=== PATIENT | female | born 1990 | race Two or more races ===

== ENCOUNTER 2016-10-18 12:12 | Outpatient (CLI) | payer OTHER ==
--- NOTE | 2016-10-21 03:32 | Non Stress Test Report ---
Non Stress Test Datetime Report Generated by CPN: 10/21/2016 03:32 DEMOGRAPHIC EGA NST: 39.4 INDICATION Indication for Study: Diabetes Mellitus MONITORING Monitor Explained: Monitor Explained; Test Explained; Patient Verbalized Understanding Time on Monitor: 10/18/2016 12:27 Time off Monitor: 10/18/2016 12:57 NST Duration: 30 NST INTERVENTIONS NST Interventions: PO Hydration; Reposition Patient Physician Notified NST: J. Dang CNM BABY A: [id number] BABY A Movement : Present Contraction Frequency : irreg FHR Baseline : 140 Accelerations : 15X15 Decelerations : None Variability : Moderate 6-25bpm NST Review: Meets Criteria for Reactive NST NST Review and Verified By : Jody De Paz RNC NST Results: Reactive NST REPORT Report Trigger: Send Report
== END 2016-10-18 13:00 | disposition home or self-care (01) ==
LOC: LC 12:12
PROVIDERS: ATTEND Obstetrics & Gynecology
DX: O47.1 False labor at or after 37 completed weeks of gestation (principal); Z3A.39 39 weeks gestation of pregnancy
CPT/HCPCS: 59025

== ENCOUNTER 2016-10-21 03:34 | Outpatient (CLI) | payer OTHER ==
[2016-10-21 04:16] LABS: APPEARANCE,URINE CLEAR; BILIRUBIN,URINE NEGATIVE (NEGATIVE); GLUCOSE, URINE NEGATIVE (NEGATIVE); KETONES,URINE NEGATIVE (NEGATIVE); LEUKOCYTE ESTERASE,URINE NEGATIVE (NEGATIVE); NITRITE,URINE NEGATIVE (NEGATIVE); PROTEIN,URINE NEGATIVE (NEGATIVE); URINE SPECIFIC GRAVITY 1.005; UROBILINOGEN,URINE NEGATIVE mg/dL (<2.0)
[2016-10-21 04:43] LABS: URINE BARBITURATES SCREEN NEGATIVE
[2016-10-21 04:47] LABS: URINE METHADONE SCREEN NEGATIVE; URINE OPIATES LOW NEGATIVE; URINE PHENCYCLIDINE SCREEN NEGATIVE
[2016-10-21] MEDS ORDERED: HYDROXYZINE PAMOATE 50 MG CAPSULE ONE (06:26)
[2016-10-21] MEDS ORDERED: HYDROXYZINE PAMOATE 50 MG CAPSULE PO ONE (06:30)
--- NOTE | 2016-10-21 06:52 | Non Stress Test Report ---
Non Stress Test Datetime Report Generated by CPN: 10/21/2016 06:51 DEMOGRAPHIC EGA NST: 40.0 INDICATION Indication for Study: Ordered by Provider URINE RESULTS Urine Protein, NST: Negative Urine Ketones - NST: Negative Urine Glucose - NST: Negative Urine Blood - NST: Negative MONITORING Monitor Explained: Monitor Explained; Test Explained; Patient Verbalized Understanding Time on Monitor: 10/21/2016 03:51 Time off Monitor: 10/21/2016 06:35 NST Duration: 164 NST INTERVENTIONS NST Interventions: PO Hydration Physician Notified NST: Dr. Neilsen BABY A Movement : Present Contraction Frequency : 2-5 FHR Baseline : 135 Accelerations : 15X15 Decelerations : None Variability : Moderate 6-25bpm NST Review: Meets Criteria for Reactive NST NST Review and Verified By : Spring Medel RN NSMike Results: Reactive NST REPORT Report Trigger: Send Report
--- NOTE | 2016-10-21 10:45 | L&D Flow Sheet ---
LD Flowsheet Datetime Report Generated by CPN: 10/21/2016 10:45 Datetime: 10/21/2016 06:41 Patient Care Comments: Patient ambulating off of unit accompanied by spouse, denies any questions at this time. Patient in stable, ambulatory condition. Will follow up as scheduled at A. (Allie Ring, RN) Datetime: 10/21/2016 06:35 Patient Care Comments: Monitors removed and patient OOB to be discharged home. (Allie Ring, RN) Datetime: 10/21/2016 06:34 Monitor Mode: External; Palpation (Allie Ring, RN) Frequency (min): Irregular (Allie Ring, RN) Quality: Mild/Moderate (Allie Ring, RN) Duration (sec): 60-90 (Allie Ring, RN) Resting Tone (Palpate): Relaxed (Allie Ring, RN) Monitor Mode: External US (Allie Ring, RN) FHR Baseline Rate : 135 (Allie Ring, RN) Variability: Moderate 6-25 bpm (Allie Ring, RN) Accelerations: 15X15 (Allie Ring, RN) Decelerations: None (Allie Ring, RN) Datetime: 10/21/2016 06:33 NBP Sys/Devi/Mean (mmHg): 127 (QS system process) : 71 (QS system process) : 93 (QS system process) Pulse: 74 (QS system process) Respirations: 18 (Allie Ring, RN) Temperature (F): 96.9 (Allie Ring, RN) Temperature (C): 36.1 (QS system process) Temperature Route: Axillary (Allie Ring, RN) Pain Scale: 2 (Allie Ring, RN) Pain Presence: Intermittent (Allie Ring, RN) Pain Type: Contraction (Allie Ring, RN) Pain Location: Abdomen (Allie Ring, RN) Pain Goal: 1 (Allie Ring, RN) Pain Relief Measures: Pain Medication Given; Comfort Measures (Allie Ring, RN) LaborFlag: Antepartum (QS system process) Datetime: 10/21/2016 06:31 Teaching Comments: Pt and pt's spouse verbalized understanding of discharge materials and signs and symptoms to report to provider/return to hospital for. Pt states pain has decreased from 4 out of 5 to a 2 out of 5 and has no questions at this time. (Allie Ring, RN) Datetime: 10/21/2016 06:28 Medication Comments: vistaril 50 mg (Allie Ring, RN) Datetime: 10/21/2016 06:20 Provider Reviewed Strip: Yes (Allie Ulrich, RN) Notification Reason: Status Update (Allie Ulrich, RN) Communication Comments: Report to Dr. Montiel to include unchanged SVE. Orders received that patient may have 50 mg vistaril and may go home until contractions become more intense, suspected SROM, vaginal bleeding like a period and/or decreased movement. (Allie Ring, RN) Datetime: 10/21/2016 06:18 NBP Sys/Devi/Mean (mmHg): 134 (QS system process) : 73 (QS system process) : 98 (QS system process) Pulse: 80 (QS system process) Dilatation (cm): 2.0 (Allie Ring, RN) Effacement (%): 25 (Allie Ring, RN) Station: -2 (Allie Ring, RN) Exam by: B. Ring RN (Allie Ring, RN) Cervix, Consistency: Soft (Allie Ring, RN) LaborFlag: Antepartum (QS system process) Datetime: 10/21/2016 06:15 Patient Care Comments: Pt requesting SVE to be rechecked and states cannot walk anymore. (Allie Ring, RN) Datetime: 10/21/2016 05:15 Monitor Mode: External; Palpation (Allie Ring, RN) Frequency (min): 2-4 (Allie Ring, RN) Quality: Mild/Moderate (Allie Ring, RN) Duration (sec): 60-80 (Allie Ring, RN) Resting Tone (Palpate): Relaxed (Allie Ring, RN) Monitor Mode: External US (Allie Ring, RN) FHR Baseline Rate : 135 (Allie Ring, RN) Variability: Moderate 6-25 bpm (Allie Ring, RN) Accelerations: 15X15 (Allie Ring, RN) Decelerations: None (Allie Ring, RN) Patient Care Comments: Pt in agreement with walking. Monitors removed to have patient ambulate on unit. (Allie Ring, RN) Datetime: 10/21/2016 05:09 Communication Comments: Call placed to Dr. Montiel. Report to include relevant patient history, urinalysis results, vital signs, SVE and second SVE, toco data, FHR. Orders received to allow patient to walk for two hours and then perform SVE. Call provider for further orders. (Allie Ring, RN) Datetime: 10/21/2016 05:08 NBP Sys/Devi/Mean (mmHg): 137 (QS system process) : 75 (QS system process) : 101 (QS system process) Pulse: 74 (QS system process) LaborFlag: Antepartum (QS system process) Datetime: 10/21/2016 05:01 Dilatation (cm): 2.0 (Allie Ring, RN) Effacement (%): 25 (Allie Ring, RN) Station: -2 (Allie Ring, RN) Exam by: B. Ring RN (Allie Ring, RN) Cervix, Consistency: Soft (Allie Ring, RN) Datetime: 10/21/2016 05:00 Monitor Mode: External; Palpation (Allie Ring, RN) Frequency (min): 2-3 (Allie Ring, RN) Quality: Mild/Moderate (Allie Ring, RN) Duration (sec): 60-80 (Allie Ring, RN) Pattern: Normal: <= 5 Contractions in 10 Minutes (Allie Ring, RN) Resting Tone (Palpate): Relaxed (Allie Ring, RN) FHR Baseline Rate : 135 (Allie Ring, RN) Variability: Moderate 6-25 bpm (Allie Ring, RN) Accelerations: 10X10 (Allie Ring, RN) Decelerations: None (Allie Ring, RN) Datetime: 10/21/2016 04:46 I/O Interventions: Up to BR (Allie Ring, RN) Datetime: 10/21/2016 04:39 NBP Sys/Devi/Mean (mmHg): 139 (QS system process) : 76 (QS system process) : 102 (QS system process) Pulse: 82 (QS system process) LaborFlag: Antepartum (QS system process) Datetime: 10/21/2016 04:30 Monitor Mode: External; Palpation (Allie Ring, RN) Frequency (min): 2-2.5 (Allie Ring, RN) Quality: Mild/Moderate (Allie Ring, RN) Duration (sec): 60-90 (Allie Ring, RN) Resting Tone (Palpate): Relaxed (Allie Ring, RN) Monitor Mode: External US (Allie Ring, RN) FHR Baseline Rate : 135 (Allie Ring, RN) Variability: Moderate 6-25 bpm (Allie Ring, RN) Accelerations: 10X10 (Allie Ring, RN) Decelerations: None (Allie Ring, RN) Datetime: 10/21/2016 04:18 I/O Interventions: Popsicle (Allie Ring, RN) Datetime: 10/21/2016 04:07 NBP Sys/Devi/Mean (mmHg): 123 (QS system process) : 70 (QS system process) : 92 (QS system process) Pulse: 71 (QS system process) Respirations: 16 (Allie Ring, RN) Temperature (F): 98.0 (Allie Ring, RN) Temperature (C): 36.7 (QS system process) Temperature Route: Oral (Allie Ring, RN) LaborFlag: Antepartum (QS system process) Datetime: 10/21/2016 04:00 Monitor Mode: External; Palpation (Allie Ring, RN) Frequency (min): 2-2.5 (Allie Ring, RN) Quality: Mild/Moderate (Allie Ring, RN) Duration (sec): 60-70 (Allie Ring, RN) Resting Tone (Palpate): Relaxed (Allie Ring, RN) Monitor Mode: External US (Allie Ring, RN) FHR Baseline Rate : 145 (Allie Ring, RN) Variability: Moderate 6-25 bpm (Allie Ring, RN) Accelerations: None (Allie Ring, RN) Decelerations: None (Allie Ring, RN) I/O Interventions: Clear Liquids Given (Allie Ring, RN) Datetime: 10/21/2016 03:58 Frequency (min): per pt, contractions are 5-6 minutes apart and then sometimes are one right after another. (Allie Ring, RN) Pain Scale: 4 (Allie Ring, RN) Pain Presence: Intermittent (Allie Ring, RN) Pain Type: Contraction (Allie Ring, RN) Pain Location: Abdomen (Allie Ring, RN) Pain Goal: 1 (Allie Ring, RN) Pain Relief Measures: Comfort Measures (Allie Ring, RN) Pain Coping: Talking Through Contractions; Breathing Through Contractions (Allie Ring, RN) Membrane Status: Intact (Allie Ring, RN) Vaginal Bleeding: None (Allie Ring, RN) Dilatation (cm): 1-2 cm (Allie Ring, RN) Effacement: 0-30_ effaced (Allie Ring, RN) Station: minus 2 (Allie Ring, RN) Consistency: Medium (Allie Ring, RN) Position: Posterior (Allie Ring, RN) Total Barber's Score: 3 (QS system process) : 0-4 = Unfavorable cervix (QS system process) Level of Consciousness: Fully Conscious (Allie Ring, RN) DTR's/Clonus: DTRs 2+; No Clonus (Allie Ring, RN) Headache: Denies (Allie Ring, RN) Breath Sounds, Left: Clear and Equal (Allie Ulrich RN) Breath Sounds, Right: Clear and Equal (Allie Ulrich RN) Nausea/Vomiting: Denies (Allie Ulrich RN) RUQ Epigastric Pain: Denies (Allie Ulrich RN) Instructional Method: Verbal; Patient Instructed; Family/Support Person Instructed; Verbalized Understanding (Allie Ulrich RN) Plan of Care: Plan of Care Discussed (Allie Ulrich RN) Unit Routine: Leonard to Room; Call Segal; Bed; Handwashing; Monitoring; Safety/Fall Risk Prevention; Bathroom Privileges (Allie Ulrich RN) LaborFlag: Antepartum (QS system process) Datetime: 10/21/2016 03:55 Dilatation (cm): 1.0 (Allie Ulrich RN) Effacement (%): 25 (Allie Ulrich RN) Station: -2 (Allie Ulrich RN) Exam by: Zoila Ulrich RN (Allie Ulrich RN) Vaginal Bleeding: None (Allie Ulrich RN)
--- NOTE | 2016-10-21 10:45 | L&D Current Admission ---
Current Admit Datetime Report Generated by CPN: 10/21/2016 10:45 ADMISSION INFORMATION Chief Complaint: Contractions (10/21/2016 03:58:Allie Ring, RN)
--- NOTE | 2016-10-21 10:46 | L&D General Admission ---
General Admit Datetime Report Generated by CPN: 10/21/2016 10:45 INFORMATION Patient Age: 26 (09/27/2016 14:09:QS system process) EDC: 10/21/2016 00:00 (10/18/2016 12:14:Tanya Horan RN) : 2 (10/18/2016 12:14:Tanya Horan RN) Para: 0 (10/18/2016 12:14:Tanya Horan RN) Term: 0 (10/18/2016 12:14:NEAL Dalal) : 0 (10/18/2016 12:14:NEAL Dalal) Livin (10/18/2016 12:14:NEAL Dalal) Cesareans: 0 (10/18/2016 12:14:NEAL Dalal) VBACs: 0 (10/18/2016 12:14:NEAL Dalal) Ectopic: 0 (10/18/2016 12:14:NEAL Dalal) Multiple Births: 0 (10/18/2016 12:14:Jody De Paz [facility]) Baby, Number in Womb: 1 (10/18/2016 12:14:Jody De Paz [facility]) CARE Primary Blister Packing Machine Tender: Tedcas [facility] (10/18/2016 12:14:Tanya Horan RN) Month of 1st Visit: March (10/18/2016 12:14:Stephanie Saucedo RN) Adequate Care: Yes (10/18/2016 12:14:Stephanie Saucedo RN) Prepregnancy Weight (lb): 101 (10/18/2016 12:14:Stephanie Saucedo RN) Prepregnancy Weight (kg): 45.9 (10/18/2016 12:14:QS system process) Height (in): 62 (10/21/2016 04:33:QS system process) Height (in): 63 (10/18/2016 12:34:QS system process) ALLERGIES Medication Allergy: No (10/18/2016 12:14:Tanya Horan RN) Medication Allergies: No Known Allergies (10/21/2016) (10/21/2016 04:32:QS system process) Medication Allergies: No Known Allergies (10/18/2016) (10/18/2016 12:33:QS system process) Latex Allergy: No Latex Allergies (10/18/2016 12:14:Tanya Horan RN) Food Allergies: denies (10/18/2016 12:14:Allie Ulrich RN) Environmental Allergies: denies (10/18/2016 12:14:Allie Ulrich RN) COMMUNICATION Primary Language: Israeli (10/18/2016 12:14:Tanya Horan RN) Medical Tx Preferred Language: Israeli (10/18/2016 12:14:NEAL Dalal) Communication Barrier(s): None (10/18/2016 12:14:NEAL Dalal) DEMOGRAPHICS Address: [address] [place] [address] [place] [address] (09/27/2016 14:09:QS system process) Zipcode: [address] (09/27/2016 14:09:QS system process) Home (09/27/2016 14:09:QS system process) Work (10/18/2016 12:12:QS system process) Work (09/27/2016 14:09:QS system process) SSN: [id number] (09/27/2016 14:09:QS system process) Next of Kin Name: JOSHUA CASAREZ (09/27/2016 14:09:QS system process) Next of Kin (09/27/2016 14:09:QS system process) Next of Kin Relationship: SPO (09/27/2016 14:09:QS system process) Date of : 1990 (09/27/2016 14:09:QS system process) Marital Status: (09/27/2016 14:09:QS system process) Sex: Female (09/27/2016 14:09:QS system process) Race: Other (09/27/2016 14:09:QS system process) Ethnicity: Non- or (09/27/2016 14:09:QS system process) Jewish: None (09/27/2016 14:09:QS system process) DRUG AND ALCOHOL USE Alcohol: No (10/18/2016 12:14:Allie Ulrich RN) Cigarettes: Never Smoker. [id number] (10/18/2016 12:14:Allie Ulrich RN) Marijuana: No (10/18/2016 12:14:Allie Ulrich RN) Cocaine: No (10/18/2016 12:14:Allie Ulrich RN) Other Illicit Drugs: No (10/18/2016 12:14:Allie Ring, RN) VACCINE HISTORY Influenza Vaccine: Yes (10/18/2016 12:14:Allie Ulrich RN) Pneumococcal Vaccine: Uncertain (10/18/2016 12:14:Allie Ulrich RN) Tetanus Vaccine: Uncertain (10/18/2016 12:14:Allie Ulrich RN) Tdap Vaccine: Yes (10/18/2016 12:14:Allie Ulrich RN) Hepatitis B Vaccine: Yes (10/18/2016 12:14:Allie Ring RN) Feeding Preference: Breast (10/18/2016 12:14:Allie Ulrich RN) Benefit of Breast Feed Discussed: Yes (10/18/2016 12:14:Allie Ulrich RN) Circumcision: N/A (10/18/2016 12:14:Allie Ulrich RN) Classes Attended: No (10/18/2016 12:14:Allie Ulrich RN) Tubal Ligation: No (10/18/2016 12:14:Allie Ulrich RN) Tubal Authorization Signed: N/A (10/18/2016 12:14:Allie Ulrich RN) Consent: N/A (10/18/2016 12:14:Allie Ulrich RN) Pain Management Plans: Natural; Medications; Epidural (10/18/2016 12:14:Allie Ulrich RN) Plans for Labor and Delivery: None (10/18/2016 12:14:Allie Ulrich RN) Support Person: Joshua Casarez (10/18/2016 12:14:Allie Ulrich RN) Support Person Relationship: (10/18/2016 12:14:Allie Ulrich RN) Cultural/Spritual Practice: No (10/18/2016 12:14:Allie Ulrich RN) Spir/Cult Dietary Needs: No (10/18/2016 12:14:Allie Ulrich RN) LIVING SITUATION/DISCHARGE PLAN Living Arrangements: House (10/18/2016 12:14:Allie Ulrich RN) Adequate Access to:: Electric; Heat; Refrigeration; Plumbing/Running water; Phone; Transportation (10/18/2016 12:14:Allie Ulrich RN) WIC Program: No (10/18/2016 12:14:Allie Ulrich RN) Discharge Food Concession Manager Person: Joshua (10/18/2016 12:14:Allie Ulrich RN) Person to Help after Discharge: Joshua (10/18/2016 12:14:Allie Ulrich RN) Currently Using Commun Resources: No (10/18/2016 12:14:Allie Ulrich RN) Outside Agency/Practice Assistant: No (10/18/2016 12:14:Allie Ulrich RN) Car Seat for Discharge: Yes (10/18/2016 12:14:Allie Ulrich RN) Pt Contact w/ Post : N/A (10/18/2016 12:14:Allie Ulrich RN) LABS Blood Type: O Positive (10/18/2016 12:14:Tanya Horan RN) Antibody Screen: neg (10/18/2016 12:14:Tanya Horan RN) Group Beta Strep: neg (10/18/2016 12:14:Tanya Horan RN) Gonorrhea: Negative (10/18/2016 12:14:Tanya Horan RN) Chlamydia: Negative (10/18/2016 12:14:Stephanie Saucedo RN) RPR/VDRL: Nonreactive (10/18/2016 12:14:Tanya Horan RN) Hepatitis B: Negative (10/18/2016 12:14:Tanya Horan RN) Rubella: Non-Immune (10/18/2016 12:14:Stephanie Saucedo RN) OB/PREVIOUS HISTORY Previous Procedures: None (10/18/2016 12:14:Allie Ulrich RN) Current Procedures: Ultrasound (10/18/2016 12:14:Allie Ulrich RN) History of Previous : No (10/18/2016 12:14:Allie Ulrich RN) History of Gestational Diabetes: Yes (10/18/2016 12:14:Allie lUrich RN) History of PIH: No (10/18/2016 12:14:Allie Ulrich RN) History of Incompetent Cervix: No (10/18/2016 12:14:Allie Ulrich RN) History of Placenta Previa/Abrup: No (10/18/2016 12:14:Allie Ulrich RN) History of Macrosomia: No (10/18/2016 12:14:Allie Ulrich RN) History of IUGR: No (10/18/2016 12:14:Allie Ulrich RN) History of Hemorrhage: No (10/18/2016 12:14:Allie Ulrich RN) History of Loss/Stillborn: No (10/18/2016 12:14:Allie Ulrich RN) History of : No (10/18/2016 12:14:Allie Ulrich RN) History of D (Rh) Sensitization: No (10/18/2016 12:14:Allie Ulrich RN) History Recurrent Loss/Stillborn: No (10/18/2016 12:14:Allie Ulrich RN) History Depression/PP Depression: No (10/18/2016 12:14:Allie Ulrich RN) History of Uterine Anomaly/MARIA ELENA: No (10/18/2016 12:14:Allie Ulrich RN) History of Infertility: No (10/18/2016 12:14:Allie Ulrich RN) History of ART Treatment: No (10/18/2016 12:14:Allie Ulrich RN) History of MARIA ELENA: No (10/18/2016 12:14:Allie Ulrich RN) Comments Obstetrical History: G1: SAB in 2012 G2: current (diet-controlled GDM) (10/18/2016 12:14:Allie Ulrich RN) MEDICAL HISTORY Med Hx Diabetes: Yes (10/18/2016 12:14:Allie Ulrich RN) Diabetes Type: Gestational Diabetes (10/18/2016 12:14:Allie Ulrich RN) Med Hx Hypertension: No (10/18/2016 12:14:Allie Ulrich RN) Med Hx Heart Disease: No (10/18/2016 12:14:Allie Ulrich RN) Med Hx Autoimmune Disorder: No (10/18/2016 12:14:Allie Ulrich RN) Med Hx Kidney Disease/UTI: No (10/18/2016 12:14:Allie Ulrich RN) Med Hx Neurologic/Epilepsy: No (10/18/2016 12:14:Allie Ulrich RN) Med Hx Psychiatric Disorders: No (10/18/2016 12:14:Allie Ulrich RN) Med Hx Hepatitis/Liver Disease: No (10/18/2016 12:14:Allie Ulrich RN) Med Hx Varicosities/Phlebitis: No (10/18/2016 12:14:Allie Ulrich RN) Med Hx Thyroid Dysfunction: No (10/18/2016 12:14:Allie Ulrich RN) Med Hx Trauma/Violence: No (10/18/2016 12:14:Allie Ulrich RN) Med Hx Blood Transfusion: No (10/18/2016 12:14:Allie Ulrich RN) Med Hx Pulmonary (Asthma,TB): No (10/18/2016 12:14:Allie Ulrich RN) Med Hx Breast: No (10/18/2016 12:14:Allie Ulrich RN) Med Hx PROOF READER Surgery: No (10/18/2016 12:14:Allie Ulrich RN) Med Hx Hospitalization/Surgery: No (10/18/2016 12:14:Allie Ulrich RN) Med Hx Anesthetic Complications: No (10/18/2016 12:14:Allie Ulrich RN) Med Hx Abnormal Pap Smear: Yes (10/18/2016 12:14:Allie Ulrich RN) Other Medical Diseases: No (10/18/2016 12:14:Allie Ulrich RN) Med Hx Significant Family Hx: No (10/18/2016 12:14:Allie Ulrich RN) Details of Med/Surg Hx: Abnormal pap (pt does not remember when) (10/18/2016 12:14:Allie Ulrich RN) INFECTIOUS HISTORY Inf Hx Gonorrhea: No (10/18/2016 12:14:Allie Ulrich RN) Inf Hx Chlamydia: Yes (10/18/2016 12:14:Tanya Horan RN) Inf Hx Syphilis: No (10/18/2016 12:14:Allie Ulrich RN) Inf Hx HIV/AIDS: No (10/18/2016 12:14:Allie Ulrich RN) Inf Hx Human Papilloma Virus: No (10/18/2016 12:14:Allie Ulrich RN) Inf Hx Pt/Partner Genital Herpes: No (10/18/2016 12:14:Allie Ulrich RN) Inf Hx Tuberculosis/Exposure: No (10/18/2016 12:14:Allie Ulrich RN) Inf Hx Hepatitis B,C: No (10/18/2016 12:14:Allie Ulrich RN) Inf Hx Rash or Viral Illness: No (10/18/2016 12:14:Allie Ulrich RN) Details of Infectious Hx: Positive Chlamydia August 2016, negative DG (10/18/2016 12:14:Tanya Horan RN) GENETIC HISTORY Gen Hx Age >=35 at RICKEY: No (10/18/2016 12:14:Allie Ulrich RN) Gen Hx Thalassemia: No (10/18/2016 12:14:Allie Ulrich RN) Gen Hx Congenital Heart Defect: No (10/18/2016 12:14:Allie Ulrich RN) Gen Hx Neural Tube Defect: No (10/18/2016 12:14:Allie Ulrich RN) Gen Hx Down's Syndrome: No (10/18/2016 12:14:Allie Ulrich RN) Gen Hx Epi-Sachs: No (10/18/2016 12:14:Allie Ulrich RN) Gen Hx Nghia: No (10/18/2016 12:14:Allie Ulrich RN) Gen Hx Familial Dysautonomia: No (10/18/2016 12:14:Allie Ulrich RN) Gen Hx Sickle Cell Disease/Trait: No (10/18/2016 12:14:Allie Ulrich RN) Gen Hx Hemophilia/Blood Disorder: No (10/18/2016 12:14:Allie Ulrich RN) Gen Hx Muscular Dystrophy: No (10/18/2016 12:14:Allie Ulrich RN) Gen Hx Cystic Fibrosis: No (10/18/2016 12:14:Allie Ulrich RN) Gen Hx Huntingtons Chorea: No (10/18/2016 12:14:Allie Ulrich RN) Gen Hx Mental Retardation/Autism: No (10/18/2016 12:14:Allie Ulrich RN) Gen Hx Tested for Fragile X: No (10/18/2016 12:14:Allie Ulrich RN) Gen Hx Other Inher/Chromosomal: No (10/18/2016 12:14:Allie Ulrich RN) Gen Hx Maternal Metabolic DO: No (10/18/2016 12:14:Allie Ulrich RN) Gen Hx Pt Father or FOB Defect: No (10/18/2016 12:14:Allie Ulrich RN) Gen Hx Other Genetic History: No (10/18/2016 12:14:Allie Ulrich RN) Gen Hx Drugs/Meds since LMP: Yes (10/18/2016 12:14:Allie Ulrich RN) Gen Hx Medications: PNV (10/18/2016 12:14:Allie Ulrich RN) Details of Genetic History: denies (10/18/2016 12:14:Allie Ulrich RN)
--- NOTE | 2016-10-21 10:46 | L&D Admission Assessment ---
LD ADM ASMT Datetime Report Generated by CPN: 10/21/2016 10:45 Assessment Type: Triage (10/21/2016 03:58:Allie Ulrich RN) Weight (lb): 139 (10/21/2016 04:33:QS system process) Weight (kg): 63.2 (10/21/2016 04:33:QS system process) Total Wt Gain (lb): 38 (10/21/2016 04:33:QS system process) Wt Gain (kg): 17.1 (10/21/2016 04:33:QS system process) BMI: 24.6 (10/21/2016 04:33:QS system process) Pain Scale: 2 (10/21/2016 06:33:Allie Ulrich RN) Pain Scale: 4 (10/21/2016 03:58:Allie Ulrich RN) Pain Presence: Intermittent (10/21/2016 06:33:Allie Ulrich RN) Pain Presence: Intermittent (10/21/2016 03:58:Allie Ulrich RN) Pain Type: Contraction (10/21/2016 06:33:Allie Ulrich RN) Pain Type: Contraction (10/21/2016 03:58:Allie Ulrich RN) Pain Location: Abdomen (10/21/2016 06:33:Allie Ulrich RN) Pain Location: Abdomen (10/21/2016 03:58:Allie Ulrich RN) Pain Goal: 1 (10/21/2016 06:33:Allie Ulrich RN) Pain Goal: 1 (10/21/2016 03:58:Allie Ulrich RN) Pain Related to Contraction: Yes (10/21/2016 03:58:Allie Ulrich RN) Frequency (min): Irregular (10/21/2016 06:34:Allie Ring, RN) Frequency (min): 2-4 (10/21/2016 05:15:Allie Ring, RN) Frequency (min): 2-3 (10/21/2016 05:00:Allie Ring, RN) Frequency (min): 2-2.5 (10/21/2016 04:30:Allie Ring, RN) Frequency (min): 2-2.5 (10/21/2016 04:00:Allie Ring, RN) Frequency (min): per pt, contractions are 5-6 minutes apart and then sometimes are one right after another. (10/21/2016 03:58:Allie Ring, RN) Duration (sec): 60-90 (10/21/2016 06:34:Allie Ring, RN) Duration (sec): 60-80 (10/21/2016 05:15:Allie Ring, RN) Duration (sec): 60-80 (10/21/2016 05:00:Allie Ring, RN) Duration (sec): 60-90 (10/21/2016 04:30:Allie Ring, RN) Duration (sec): 60-70 (10/21/2016 04:00:Allie Ring, RN) Quality: Mild/Moderate (10/21/2016 06:34:Allie Ring, RN) Quality: Mild/Moderate (10/21/2016 05:15:Allie Ring, RN) Quality: Mild/Moderate (10/21/2016 05:00:Allie Ring, RN) Quality: Mild/Moderate (10/21/2016 04:30:Allie Ring, RN) Quality: Mild/Moderate (10/21/2016 04:00:Allie Ring, RN) Pattern: Normal: <= 5 Contractions in 10 Minutes (10/21/2016 05:00:Allie Ring, RN) Resting Tone [place]: Relaxed (10/21/2016 06:34:Allie Ring, RN) Resting Tone [place]: Relaxed (10/21/2016 05:15:Allie Ring, RN) Resting Tone [place]: Relaxed (10/21/2016 05:00:Allie Ring, RN) Resting Tone [place]: Relaxed (10/21/2016 04:30:Allie Ring, RN) Resting Tone [place]: Relaxed (10/21/2016 04:00:Allie Ring, RN) Dilatation (cm): 2.0 (10/21/2016 06:18:Allie Ring, RN) Dilatation (cm): 2.0 (10/21/2016 05:01:Allie Ring, RN) Dilatation (cm): 1.0 (10/21/2016 03:55:Allie Ring, RN) Effacement (%): 25 (10/21/2016 06:18:Allie Ring, RN) Effacement (%): 25 (10/21/2016 05:01:Allie Ring, RN) Effacement (%): 25 (10/21/2016 03:55:Allie Ring, RN) Station: -2 (10/21/2016 06:18:Allie Ring, RN) Station: -2 (10/21/2016 05:01:Allie Ring, RN) Station: -2 (10/21/2016 03:55:Allie Ring, RN) Membranes Status: Intact (10/21/2016 03:58:Allie Ring, RN) Barber's Score Dilatation (cm): 1-2 cm (10/21/2016 03:58:Allie Ring, RN) Barber's Score Effacement (%): 0-30_ effaced (10/21/2016 03:58:Allie Ring, RN) Barber's Score Station: minus 2 (10/21/2016 03:58:Allie Ring, RN) Barber's Score Consistency: Medium (10/21/2016 03:58:Allie Ring, RN) Abrber's Score Position: Posterior (10/21/2016 03:58:Allie Ring, RN) Total Barber's Score: 3 (10/21/2016 03:58:QS system process) Barber's Score Text: 0-4 = Unfavorable cervix (10/21/2016 03:58:QS system process) Level of Consciousness: Fully Conscious (10/21/2016 03:58:Allie Ring, RN) DTR's/Clonus: DTRs 2+; No Clonus (10/21/2016 03:58:Allie Ring, RN) Headache: Denies (10/21/2016 03:58:Allie Ring, RN) Dizziness: No (10/21/2016 03:58:Allie Ulrich RN) Blurred Vision: No (10/21/2016 03:58:Allie Ulrich RN) Extremity Numbness/Tingling : None (10/21/2016 03:58:Allie Ulrich RN) Extremity Movement: Full Range of Motion (10/21/2016 03:58:Allie Ulrich RN) Heart Rhythm: Regular (10/21/2016 03:58:Allie Ulrich RN) Nailbeds: [place] (10/21/2016 03:58:Allie Ulrich RN) Capillary Refill: Less than 3 Seconds (10/21/2016 03:58:Allie Ulrich RN) Lower Extremities Edema: None (10/21/2016 03:58:Allie Ulrich RN) Upper Extremities Edema: None (10/21/2016 03:58:Allie Ulrich RN) Facial Edema: None (10/21/2016 03:58:Allie Ulrich RN) Sandra's Sign Left Leg: Negative (10/21/2016 03:58:Allie Ulrich RN) Sandra's Sign Right Leg: Negative (10/21/2016 03:58:Allie Ulrich RN) DVT Risk Age: Age less than 41 years (10/21/2016 03:58:Allie Ulrich RN) DVT Risk BMI: BMI<31 (10/21/2016 03:58:Allie Ulrich RN) DVT Risk Surgery: None Applicable (10/21/2016 03:58:Allie Ulrich RN) DVT Risk Other: Women Only- or (<1 month) (10/21/2016 03:58:Allie Ulrich RN) DVT Risk Total: 1 (10/21/2016 03:58:QS system process) DVT Risk Text: Low Risk (<10%) No specific measures, early ambulation (10/21/2016 03:58:QS system process) Respiratory Effort: Unlabored; Regular Rhythm; Equal Expansion (10/21/2016 03:58:Allie Ulrich RN) Breath Sounds, Left: Clear and Equal (10/21/2016 03:58:Allie Ulrich RN) Breath Sounds, Right: Clear and Equal (10/21/2016 03:58:Allie Ulrich RN) Cough Productivity: None (10/21/2016 03:58:Allie Ulrich, RN) Nausea/Vomiting: Denies (10/21/2016 03:58:Allie Ring, RN) Bowel Sounds: Normoactive; All Quadrants (10/21/2016 03:58:Allie Ring, RN) RUQ Epigastric Pain: Denies (10/21/2016 03:58:Allie Ring, RN) Bowel Patterns: Soft, Formed Stool (10/21/2016 03:58:Allie Ring, RN) Hemorrhoids: None (10/21/2016 03:58:Allie Ulrich, RN) Diet Type: Regular diet (10/21/2016 03:58:Allie Ulrich, RN) Last Meal: 10/20/2016 22:00 (10/21/2016 03:58:Allie Ulrich, RN) Bladder: Nondistended (10/21/2016 03:58:Allie Ulrich, RN) Frequency of Urination: No (10/21/2016 03:58:Allie Ulrich, RN) Urination Burning: No (10/21/2016 03:58:Allie Ulrich RN) CVA Tenderness: No (10/21/2016 03:58:Allie Ulrich, RN) Vaginal Bleeding: None (10/21/2016 03:58:Allie Ring, RN) Vaginal Discharge Amount: None (10/21/2016 03:58:Allie Ulrcih, RN) Vaginal Discharge Color: N/A (10/21/2016 03:58:Allie Ulrich, RN) Vaginal Discharge Character: None (10/21/2016 03:58:Allie Ulrich, RN) Skin Color: Normal for Race (10/21/2016 03:58:Allie Ulrich, RN) Skin Temperature: Warm (10/21/2016 03:58:Allie Ulrich, RN) Skin Moisture: Dry (10/21/2016 03:58:Allie Ulrich, RN) Body Piercings/Tattoos: ears (10/21/2016 03:58:Allie Ulrich RN) Steven Scale Sensory Perception: No Impairment- Responds to verbal commands. Has no sensory deficit which would limit ability to feel or voice pain or discomfort (10/21/2016 03:58:Allie Ulrich, RN) Steven Scale Moisture: Rarely Moist- Skin is usually dry. Linen only requires changing at routine intervals (10/21/2016 03:58:Allie Ulrich RN) Steven Scale Activity: Walks Frequently- Walks outside the room at least twice a day and inside room at least every 2 hours during the day. (10/21/2016 03:58:Allie Ulrich RN) Steven Scale Mobility: No Limitations- Makes major and frequent changes in position without assistance (10/21/2016 03:58:Allie Ulrich RN) Steven Scale Nutrition: Adequate- Eats over half of most meals. Eats a total of 4 servings of protein (meat, dairy products) each day. Occasionally will refuse a meal but will usually take a supplement if offered OR is on a tube feeding or TPN regimen which probably meets most of nutritional needs (10/21/2016 03:58:Allie Ulrich RN) Steven Scale Friction and Shear: No Apparent Problem- Moves in bed and in chair independently and has sufficient muscle strength to lift up completely during move. Maintains good position in bed or chair at all times (10/21/2016 03:58:Allie Ulrich RN) Steven Scale Total: 22 (10/21/2016 03:58:QS system process) Steven Scale Risk: No Risk of Pressure Ulcer Noted at this Time (10/21/2016 03:58:QS system process) Family Support: Significant Other supportive, at bedside frequently (10/21/2016 03:58:Allie Ulrich RN) Emotional State: Calm/Relaxed (10/21/2016 03:58:Allie Ulrich RN) Call Segal Within Reach: Yes (10/21/2016 03:58:Allie Ulrich RN) Side Rails Up: Yes (10/21/2016 03:58:Allie Ulrich RN) Bed Wheels Locked: Yes (10/21/2016 03:58:Allie Ulrich RN) Arm Bands Present: Yes (10/21/2016 03:58:Allie Ulrich RN) Isolation: [place] (10/21/2016 03:58:Allie Ulrich RN) Fall Risk History of Falling: (0) No (10/21/2016 03:58:Allie Ulrich RN) Fall Risk Secondary Diagnosis: (0) No (10/21/2016 03:58:Allie Ulrich RN) Fall Risk Ambulatory Aid: (0) None/Bedrest/Wheelchair/Nurse Assist (10/21/2016 03:58:Allie Ulrich RN) Fall Risk IV Therapy: (0) No (10/21/2016 03:58:Allie Ulrich RN) Fall Risk Gait: (0) Normal/Bedrest/Immobile (10/21/2016 03:58:Allie Ulrich RN) Fall Risk Mental Status: (0) Oriented to Own Ability (10/21/2016 03:58:Allie Ulrich RN) Fall Risk Score: 0 (10/21/2016 03:58:QS system process) Fall Risk Score Definition: No Risk: No action required (10/21/2016 03:58:QS system process) Recent Exp Communicable Disease: No (10/21/2016 03:58:Allie Ulrich RN) Cough or Fever: No (10/21/2016 03:58:Allie Ulrich RN) Foreign Travel Past 10 Days: No (10/21/2016 03:58:Allie Ulrich RN) Open Wounds or Sores: No (10/21/2016 03:58:Allie Ulrich RN) Prior Antibiotic Resistance Tx: No (10/21/2016 03:58:Allie Ulrich RN) Cultures Obtained: Not Applicable (10/21/2016 03:58:Allie Ulrich RN) Isolation Initiated: No (10/21/2016 03:58:Allie Ulrich RN) Pt/Family Education: Handwashing Hygiene (10/21/2016 03:58:Allie Ulrich RN) FHR Baseline Rate (bpm) Baby A: 135 (10/21/2016 06:34:Allie Ulrich RN) FHR Baseline Rate (bpm) Baby A: 135 (10/21/2016 05:15:Allie Ulrich RN) FHR Baseline Rate (bpm) Baby A: 135 (10/21/2016 05:00:Allie Ulrich RN) FHR Baseline Rate (bpm) Baby A: 135 (10/21/2016 04:30:Allie Ulrich RN) FHR Baseline Rate (bpm) Baby A: 145 (10/21/2016 04:00:Allie Ulrich RN) Variability Baby A: Moderate 6-25 bpm (10/21/2016 06:34:Allie Ulrich RN) Variability Baby A: Moderate 6-25 bpm (10/21/2016 05:15:Allie Ulrich, RN) Variability Baby A: Moderate 6-25 bpm (10/21/2016 05:00:Allie Ring, RN) Variability Baby A: Moderate 6-25 bpm (10/21/2016 04:30:Allie Ring, RN) Variability Baby A: Moderate 6-25 bpm (10/21/2016 04:00:Allie Ring, RN) Accelerations Baby A: 15X15 (10/21/2016 06:34:Allie Ulrich RN) Accelerations Baby A: 15X15 (10/21/2016 05:15:Allie Ulrich RN) Accelerations Baby A: 10X10 (10/21/2016 05:00:Allie Ulrich RN) Accelerations Baby A: 10X10 (10/21/2016 04:30:Allie Ulrich RN) Accelerations Baby A: None (10/21/2016 04:00:Allie Ulrich RN) Decelerations Baby A: None (10/21/2016 06:34:Allie Ulrich RN) Decelerations Baby A: None (10/21/2016 05:15:Allie Ulrich RN) Decelerations Baby A: None (10/21/2016 05:00:Allie Ulrich, RN) Decelerations Baby A: None (10/21/2016 04:30:Allie Ulrich RN) Decelerations Baby A: None (10/21/2016 04:00:Allie Ulrich RN)
--- NOTE | 2016-10-21 10:46 | Antepartum Discharge Summary ---
Antepartum DC Datetime Report Generated by CPN: 10/21/2016 10:45 DIET/ACTIVITY/RESTRICTIONS Diet: Regular (10/21/2016 06:38:Allie Ring, RN) Diet: Regular (10/18/2016 13:00:Tanya Marlatt, RN) Activity: Normal Activity (10/21/2016 06:38:Allie Ring, RN) Activity: Normal Activity (10/18/2016 13:00:Tanya Marlatt, RN) TEACHING/INSTRUCTIONS/REFERRALS Instructions Given To: Patient; patient's spouse (10/21/2016 06:38:Allie Ulrich RN) Instructions Given To: Patient (10/18/2016 13:00:Tanya Horan RN) Instructions Understood: Patient Verbalized Understanding; Support Person Verbalized Understanding (10/21/2016 06:38:Allie Ulrich RN) Instructions Understood: Patient Verbalized Understanding; Support Person Verbalized Understanding (10/18/2016 13:00:Tanya Horan RN) Referrals: None (10/18/2016 13:00:Tanya Horan RN) Educational Materials- Other: - Kick Counts - Term Instruction (10/21/2016 06:38:Allie Ulrich RN) Educational Materials- Other: Kick Count care notes (10/18/2016 13:00:Tanya Horan RN) DISCHARGE INFORMATION Discharged AMA: No (10/21/2016 06:38:Allie Ulrich RN) Discharged AMA: No (10/18/2016 13:00:Tanya Horan RN) Discharge Date/Time: 10/21/2016 06:41 (10/21/2016 06:38:Allie Ulrich RN) Discharge Date/Time: 10/18/2016 13:00 (10/18/2016 13:00:Tanya Horan RN) Discharged To: Home (10/21/2016 06:38:Allie Ulrich RN) Discharged To: Home (10/18/2016 13:00:Tanya Horan RN) Discharge Provider Name: Dr. Montiel (10/21/2016 06:38:Allie Ulrich RN) Discharge Provider Name: Yamileth Dang CNM (10/18/2016 13:00:Tanya Horan RN) Accompanied By: Spouse (10/21/2016 06:38:Allie Ulrich RN) Accompanied By: FOB (10/18/2016 13:00:Tanya Horan RN) Discharge Method: Ambulatory (10/21/2016 06:38:Allie Ulrich RN) Discharge Method: Ambulatory (10/18/2016 13:00:Tanya Horan RN) Condition: Stable (10/21/2016 06:38:Allie Ulrich RN) Condition: Stable (10/18/2016 13:00:Tanya Horan RN) FOLLOW UP INFORMATION Follow Up With: [facility] (10/21/2016 06:38:Allie Ulrich RN) Follow Up With: [facility] (10/18/2016 13:00:Tanya Horan RN) Follow Up On: As Scheduled (10/21/2016 06:38:Allie Ulrich RN) Follow Up On: As Scheduled (10/18/2016 13:00:Tanya Horan RN) Follow Up Phone Number: [facility] - (10/21/2016 06:38:Allie Ulrich RN) Follow Up Phone Number: [facility] - (10/18/2016 13:00:Tanya Horan RN) Comments: Pt and pt's spouse verbalized understanding of discharge materials and able to teach back signs and symptoms to report to provider to include vaginal bleeding, suspected SROM, decreased movement, contractions that increase in intensity/duration/frequency. Will follow up at [facility] as scheduled. (10/21/2016 06:38:Allie Ulrich RN) Comments: Educated patient on how to do Kick Counts and when to return to the hospital. Pt verbalized understanding (10/18/2016 13:00:Tanya Horan RN)
--- NOTE | 2016-10-21 10:46 | L&D Discharge Summary ---
OB Discharge Summary Datetime Report Generated by CPN: 10/21/2016 10:45 DISCHARGE DIAGNOSIS Diagnosis/Symptoms: False Labor Gestation: 39.6 Number of Babies in Womb: 1 Parity: 0 DIET/ACTIVITY/RESTRICTIONS Diet: Regular Activity: Normal Activity TEACHING/INSTRUCTIONS/REFERRALS Instructions Given To: Patient; patient's spouse Instructions Understood: Patient Verbalized Understanding; Support Person Verbalized Understanding Referrals: None Educational Materials- Other: - Kick Counts - Term Instruction DISCHARGE INFORMATION Discharged AMA: No Discharge Date/Time: 10/21/2016 06:41 Discharged To: Home Discharge Provider Name: Dr. Montiel Accompanied By: Spouse Discharge Method: Ambulatory Condition: Stable FOLLOW UP INFORMATION Follow Up With: [facility] Follow Up On: As Scheduled Follow Up Phone Number: [facility] - Comments: Pt and pt's spouse verbalized understanding of discharge materials and able to teach back signs and symptoms to report to provider to include vaginal bleeding, suspected SROM, decreased movement, contractions that increase in intensity/duration/frequency. Will follow up at [facility] as scheduled.
== END 2016-10-21 06:41 | disposition home or self-care (01) ==
LOC: LC 03:34
PROVIDERS: ATTEND Specialist
PROC: 4A1HXCZ Monitoring of Products of Conception, Cardiac Rate, External Approach (ICD-10-PCS; principal; 2016-10-21)
DX: O47.1 False labor at or after 37 completed weeks of gestation (principal); Z3A.39 39 weeks gestation of pregnancy
CPT/HCPCS: 59025; 80307; 81005

== ENCOUNTER 2016-10-21 17:53 | Inpatient (IN) | payer OTHER ==
[2016-10-21] MEDS ORDERED: MISOPROSTOL 0.2 MG TABLET ONE (18:21)
[2016-10-21] MEDS ORDERED: OXYTOCIN/NORMAL SALINE 20 UNIT/1,000 ML RTUINJ ONE (18:21)
[2016-10-21] MEDS ORDERED: LIDOCAINE 1% INJ-PF (10 MG/ML) 30 ML SDV ONE (18:21)
[2016-10-21] MEDS ORDERED: MISOPROSTOL 0.2 MG TABLET PR PRN (18:34)
[2016-10-21] MEDS ORDERED: OXYTOCIN/NORMAL SALINE 1,000 ML IV PRN ×2 (18:34→23:26)
[2016-10-21] MEDS ORDERED: RINGERS SOLUTION,LACTATED 1,000 ML IV PRN (18:34)
[2016-10-21] MEDS ORDERED: FENTANYL/BUPIVACAINE/NS/PF 100 ML EPI PRN (18:36)
[2016-10-21] MEDS ORDERED: BUPIVACAINE HCL 0.25 % INJ/PF (2.5 MG/1 ML) 30 ML VIAL INFIL ONE (18:36)
[2016-10-21] MEDS ORDERED: EPHEDRINE SULFATE INJ 50 MG/1 ML AMPULE IV PRN (18:36)
[2016-10-21] MEDS ORDERED: LIDOCAINE 1% INJ-PF (10 MG/ML) 30 ML SDV INJ PRN (18:37)
[2016-10-21] MEDS ORDERED: FENTANYL/BUPIVACAINE/NS/PF 200 MCG/100 ML RTUINJ EPI ONE (19:03)
[2016-10-21] MEDS ORDERED: EPHEDRINE SULFATE INJ 50 MG/1 ML AMPULE ONE (19:03)
[2016-10-21] MEDS ORDERED: BUPIVACAINE HCL 0.25 % INJ/PF (2.5 MG/1 ML) 30 ML VIAL ONE (19:03)
[2016-10-21 19:04] LABS: ABSOLUTE MONOCYTES (AUTO) 0.6 10^3/uL (0.1-1.4); ABSOLUTE NEUT (AUTO) 15.9 10^3/uL (1.7-8.2); BASOPHILS % (AUTO) 0.1 % (0-2); HEMATOCRIT 35.3 % (36.0-47.0); HEMOGLOBIN 11.6 g/dL (12.0-15.5); HGB HCT DIFFERENCE -0.5; LYMPHOCYTES % (AUTO) 5.7 % (13-45); MEAN CORPUSCULAR HEMOGLOBIN 29.4 pg (27.0-33.4); MEAN CORPUSCULAR HGB CONC 32.9 g/dL (32.0-36.0); MEAN CORPUSCULAR VOLUME 90 fl (80-97); MONOCYTES % (AUTO) 3.3 % (3-13); RED BLOOD COUNT 3.94 10^6/uL (3.72-5.28); RED CELL DISTRIBUTION WIDTH 14.3 % (11.5-14.0); SEGMENTED NEUTROPHILS % (AUTO) 90.9 % (42-78); WHITE BLOOD COUNT 17.5 10^3/uL (4.0-10.5)
--- NOTE | 2016-10-21 20:01 | L&D Flow Sheet ---
LD Flowsheet Datetime Report Generated by CPN: 10/21/2016 20:00 Datetime: 10/21/2016 19:59 Membrane Status: Ruptured (Allie Ring, RN) Membranes Rupture Method: Artificial (Allie Ring, RN) Amniotic Fluid Color: Light Meconium (Allie Ring, RN) Amniotic Fluid Amount: None (Allie Ring, RN) Datetime: 10/21/2016 19:57 NBP Sys/Devi/Mean (mmHg): 114 (QS system process) : 66 (QS system process) : 85 (QS system process) Pulse: 101 (QS system process) Communication: RN at Bedside; Provider at Bedside (Allie Ulrich RN) LaborFlag: Antepartum (QS system process) Datetime: 10/21/2016 19:52 NBP Sys/Devi/Mean (mmHg): 103 (QS system process) : 56 (QS system process) : 74 (QS system process) Pulse: 93 (QS system process) LaborFlag: Antepartum (QS system process) Datetime: 10/21/2016 19:48 NBP Sys/Devi/Mean (mmHg): 117 (QS system process) : 64 (QS system process) : 84 (QS system process) Pulse: 93 (QS system process) LaborFlag: Antepartum (QS system process) Datetime: 10/21/2016 19:45 Monitor Mode: External; Palpation (Adrienne Baidy, RN) Frequency (min): 2-4 (Adrienne Baidy, RN) Quality: Moderate to Strong (Adrienne Baidy, RN) Duration (sec): 70-90 (Adrienne Baidy, RN) Duration Criteria: Less than Two 120 Second Contractions (Adrienne Baidy, RN) Pattern: Normal: <= 5 Contractions in 10 Minutes (Adrienne Baidy, RN) Resting Tone (Palpate): Relaxed (Adrienne Baidy, RN) Monitor Mode: External US (Adrienne Baidy, RN) FHR Baseline Rate : 150 (Adrienne Baidy, RN) Variability: Moderate 6-25 bpm (Adrienne Baidy, RN) Accelerations: 15X15 (Adrienne Baidy, RN) Decelerations: None (Adrienne Baidy, RN) Datetime: 10/21/2016 19:42 NBP Sys/Devi/Mean (mmHg): 122 (QS system process) : 61 (QS system process) : 86 (QS system process) Pulse: 117 (QS system process) LaborFlag: Antepartum (QS system process) Datetime: 10/21/2016 19:37 NBP Sys/Devi/Mean (mmHg): 117 (QS system process) : 65 (QS system process) : 86 (QS system process) Pulse: 99 (QS system process) LaborFlag: Antepartum (QS system process) Datetime: 10/21/2016 19:35 Communication Comments: Dr. Mulligan made aware of exam, and states she is on her way in (Era Venu, RN) Datetime: 10/21/2016 19:32 Dilatation (cm): 10.0 (Allie Ring, RN) Effacement (%): 100 (Allie Ring, RN) Station: 2 (Allie Ring, RN) Exam by: B Ring RN (Allie Ring, RN) Datetime: 10/21/2016 19:31 NBP Sys/Devi/Mean (mmHg): 107 (QS system process) : 57 (QS system process) : 75 (QS system process) Pulse: 85 (QS system process) I/O Interventions: Larios Cath Inserted (Allie Ulrich RN) Patient Care Comments: 14f clear yellow urine noted. (Allie Ulrich RN) LaborFlag: Antepartum (QS system process) Datetime: 10/21/2016 19:30 NBP Sys/Devi/Mean (mmHg): 110 (QS system process) : 56 (QS system process) : 79 (QS system process) Pulse: 100 (QS system process) Monitor Mode: External; Palpation (Adrienne Cottrell RN) Frequency (min): 1.5-4 (Adrienne Cottrell RN) Quality: Moderate to Strong (Adrienne Cottrell RN) Duration (sec): 60-90 (Adrienne Cottrell RN) Duration Criteria: Less than Two 120 Second Contractions (Adrienne Cottrell RN) Pattern: Normal: <= 5 Contractions in 10 Minutes (Adrienne Cottrell RN) Resting Tone (Palpate): Relaxed (Adrienne Cottrell RN) Monitor Mode: External US (Adrienne Cottrell RN) FHR Baseline Rate : 150 (Adrienne Cottrell, RN) Variability: Moderate 6-25 bpm (Adrienne Baidy, RN) Accelerations: 15X15 (Adrienne Baiyadi, RN) Decelerations: None (Adrienne Cottrell, RN) LaborFlag: Antepartum (QS system process) Datetime: 10/21/2016 19:29 NBP Sys/Devi/Mean (mmHg): 108 (QS system process) : 55 (QS system process) : 76 (QS system process) Pulse: 91 (QS system process) Epidural Procedure Other: Pump Started (Allie Ulrich RN) LaborFlag: Antepartum (QS system process) Datetime: 10/21/2016 19:28 NBP Sys/Devi/Mean (mmHg): 113 (QS system process) : 60 (QS system process) : 80 (QS system process) Pulse: 86 (QS system process) LaborFlag: Antepartum (QS system process) Datetime: 10/21/2016 19:27 NBP Sys/Devi/Mean (mmHg): 118 (QS system process) : 64 (QS system process) : 85 (QS system process) Pulse: 100 (QS system process) LaborFlag: Antepartum (QS system process) Datetime: 10/21/2016 19:26 NBP Sys/Devi/Mean (mmHg): 116 (QS system process) : 66 (QS system process) : 86 (QS system process) Pulse: 115 (QS system process) Pulse: 107 (QS system process) SpO2 (%): 90 (QS system process) LaborFlag: Antepartum (QS system process) Datetime: 10/21/2016 19:25 NBP Sys/Devi/Mean (mmHg): 129 (QS system process) : 68 (QS system process) : 94 (QS system process) Pulse: 110 (QS system process) LaborFlag: Antepartum (QS system process) Datetime: 10/21/2016 19:24 NBP Sys/Devi/Mean (mmHg): 130 (QS system process) : 70 (QS system process) : 94 (QS system process) Pulse: 96 (QS system process) Pulse: 100 (QS system process) SpO2 (%): 98 (QS system process) LaborFlag: Antepartum (QS system process) Datetime: 10/21/2016 19:23 NBP Sys/Devi/Mean (mmHg): 140 (QS system process) : 76 (QS system process) : 102 (QS system process) Pulse: 99 (QS system process) LaborFlag: Antepartum (QS system process) Datetime: 10/21/2016 19:22 NBP Sys/Devi/Mean (mmHg): 151 (QS system process) : 83 (QS system process) : 108 (QS system process) Pulse: 86 (QS system process) Epidural Procedure: Cath Placed; Loading Dose (Allie Ring, RN) LaborFlag: Antepartum (QS system process) Datetime: 10/21/2016 19:21 Epidural Procedure: Test Dose (Allie Ring, RN) Datetime: 10/21/2016 19:19 Pulse: 104 (QS system process) SpO2 (%): 97 (QS system process) LaborFlag: Antepartum (QS system process) Datetime: 10/21/2016 19:18 Level of Consciousness: Fully Conscious (Allie Ring, RN) DTR's/Clonus: DTRs 2+; No Clonus (Allie Ring, RN) Headache: Denies (Allie Ring, RN) Breath Sounds, Left: Clear and Equal (Allie Ring, RN) Breath Sounds, Right: Clear and Equal (Allie Ring, RN) Nausea/Vomiting: Denies (Allie Ring, RN) RUQ Epigastric Pain: Denies (Allie Ring, RN) Datetime: 10/21/2016 19:15 Monitor Mode: External; Palpation (Adrienne Cottrell, RN) Frequency (min): 2-3 (Adrienne Cottrell, RN) Quality: Moderate to Strong (Adrienne Cottrell, RN) Duration (sec): 70-120 (Adrienne Ronit, RN) Duration Criteria: More than Two 120 Second or Greater Contractions (Adrienne Cottrell, RN) Pattern: Normal: <= 5 Contractions in 10 Minutes (Adrienne Cottrell, RN) Resting Tone (Palpate): Relaxed (Adrienne Cottrell RN) Monitor Mode: External US (Adrienne Cottrell RN) FHR Baseline Rate : 150 (Adrienne Cottrell RN) Variability: Moderate 6-25 bpm (Adrienne Cottrell RN) Accelerations: 15X15 (Adrienne Cottrell RN) Decelerations: Variable (Adrienne Cottrell RN) Procedure Verify: Correct Patient Identity; Correct Side and Site are Marked; Accurate Procedure Consent Form; Agreement on Procedure to be Done; Correct Patient Position; Relevant Images and Results are Properly Labeled and Displayed; Addressed Need to Administer Antibiotics or Fluids for Irrigation; Safety Precautions Based on Patient History or Medication Use (Allie Ulrich RN) Anesthesia Plans: Epidural (Allie Ulrich RN) Epidural Positioning: Sitting (Allie Ulrich RN) Datetime: 10/21/2016 19:14 Pulse: 100 (QS system process) SpO2 (%): 98 (QS system process) LaborFlag: Antepartum (QS system process) Datetime: 10/21/2016 19:12 Procedure Verify: Correct Patient Identity; Correct Side and Site are Marked; Accurate Procedure Consent Form; Agreement on Procedure to be Done; Correct Patient Position; Relevant Images and Results are Properly Labeled and Displayed; Addressed Need to Administer Antibiotics or Fluids for Irrigation; Safety Precautions Based on Patient History or Medication Use (Allie Ulrich, RN) Anesthesia Plans: Epidural (Allie Ulrich, RN) Epidural Positioning: Sitting (Allie Ulrich, RN) Anesthesia Comments: Dr. Humphrey at bedside (Allie Ulrich, RN) Datetime: 10/21/2016 19:10 Communication Comments: handoff report given to Gale Ulrich RN care relinquished. (Adrienne Cottrell RN) Datetime: 10/21/2016 19:09 Procedure Verify: Correct Patient Identity; Correct Side and Site are Marked; Accurate Procedure Consent Form; Agreement on Procedure to be Done; Relevant Images and Results are Properly Labeled and Displayed; Addressed Need to Administer Antibiotics or Fluids for Irrigation; Safety Precautions Based on Patient History or Medication Use (Allie Ulrich, RN) Anesthesia Plans: Epidural (Allie Ring, RN) Datetime: 10/21/2016 19:00 Monitor Mode: External; Palpation (Yadira Jasmyn, RN) Frequency (min): 2-3 (Yadira Jasmyn, RN) Quality: Moderate to Strong (Yadira Jasmyn, RN) Duration (sec): 60-80 (Yadira Jasmyn, RN) Resting Tone (Palpate): Relaxed (Yadira Jasmyn, RN) Monitor Mode: External US (Yadira Jasmyn, RN) FHR Baseline Rate : 145 (Yadira Jasmyn, RN) Variability: Moderate 6-25 bpm (Yadira Jasmyn, RN) Accelerations: 15X15 (Yadira Jasmyn, RN) Decelerations: None (Yadira Jasmyn, RN) Datetime: 10/21/2016 18:59 IV/Blood Work: New IV Bag Hung; IV Bag Number @ 2 (Adrienne Cottrell, RN) Datetime: 10/21/2016 18:53 NBP Sys/Devi/Mean (mmHg): 140 (QS system process) : 72 (QS system process) : 99 (QS system process) Pulse: 104 (QS system process) LaborFlag: Antepartum (QS system process) Datetime: 10/21/2016 18:37 Procedures: Labs Drawn (Adrienne Baidy, RN) Datetime: 10/21/2016 18:36 Procedures: Consents Signed (Adrienne Baidy, RN) Datetime: 10/21/2016 18:31 IV/Blood Work: IV Started; IV Bolus Started (Adrienne Cottrell, RN) Patient Care Comments: 18g in left forearm (Adrienne Baidy, RN) Datetime: 10/21/2016 18:30 Monitor Mode: External; Palpation (Adrienne Cottrell, RN) Frequency (min): 2-2.5 (Adrienne Cottrell, RN) Quality: Moderate to Strong (Adrienne Cottrell, RN) Duration (sec): 60-90 (Adrienne Cottrell, RN) Duration Criteria: Less than Two 120 Second Contractions (Adrienne Cottrell, RN) Pattern: Normal: <= 5 Contractions in 10 Minutes (Adrienne Cottrell, RN) Resting Tone (Palpate): Relaxed (Adrienne Cottrell, RN) Monitor Mode: External US (Adrienne Cottrell, RN) FHR Baseline Rate : 150 (Adrienne Cottrell, RN) Variability: Moderate 6-25 bpm (Adrienne Baidy, RN) Accelerations: 15X15 (Adrienne Baidy, RN) Decelerations: None (Adrienne Baidy, RN) Datetime: 10/21/2016 18:21 Pain Scale: 5 (Adrienne Cottrell RN) Pain Presence: Intermittent (Adrienne Cottrell RN) Pain Type: Contraction (Adrienne Cottrell RN) Pain Location: Abdomen (Adrienne Cottrell RN) Pain Goal: 1 (Adrienne Cottrell RN) Pain Relief Measures: Comfort Measures (Adrienne Cottrell RN) Pain Coping: Breathing Through Contractions (Adrienne Cottrell RN) Membrane Status: possible rupture at 1815 (Adrienne Cottrell RN) Vaginal Bleeding: Normal Show (Adrienne Cottrell RN) Level of Consciousness: Fully Conscious (Adrienne Cottrell RN) DTR's/Clonus: DTRs 2+; No Clonus (Adrienne Cottrell RN) Headache: Denies (Adrienne Cottrell RN) Breath Sounds, Left: Clear and Equal (Adrienne Cottrell RN) Breath Sounds, Right: Clear and Equal (Adrienne Cottrell RN) Nausea/Vomiting: Denies (Adrienne Cottrell RN) RUQ Epigastric Pain: Denies (Adrienne Cottrell, AMAYA) Patient Position/Activity: Semi-Fowlers (Adrienne Cottrell, AMAYA) Instructional Method: Verbal; Patient Instructed; Verbalized Understanding (Adrienne Cottrell RN) Plan of Care: Plan of Care Discussed (Adrienne Cottrell RN) Unit Routine: Pepin to Room; Call Segal; Bed (Adrienne Cottrell, AMAYA) LaborFlag: Antepartum (QS system process) Datetime: 10/21/2016 18:17 Dilatation (cm): 9.0 (Adrienne Ronit, RN) Effacement (%): 100 (Adrienne Ronit, RN) Station: 0 (Adriennedominique Cottrell, RN) Exam by: Gale Nieycyadi RN (Adrienne Pembertonyadi, RN) Datetime: 10/21/2016 06:33 Temperature (C): 36.1 (QS system process) LaborFlag: Antepartum (QS system process) Datetime: 10/21/2016 06:18 LaborFlag: Antepartum (QS system process) Datetime: 10/21/2016 05:08 LaborFlag: Antepartum (QS system process) Datetime: 10/21/2016 04:39 LaborFlag: Antepartum (QS system process) Datetime: 10/21/2016 04:07 Temperature (C): 36.7 (QS system process) LaborFlag: Antepartum (QS system process) Datetime: 10/21/2016 03:58 Total Barber's Score: 3 (QS system process) : 0-4 = Unfavorable cervix (QS system process) LaborFlag: Antepartum (QS system process)
[2016-10-21] MEDS ORDERED: MISOPROSTOL 0.2 MG TABLET PR ONE (22:15)
[2016-10-21] MEDS ORDERED: MEASLES,MUMPS&RUBELLA VACC/PF 0.5 ML VIAL SUBCUT PRN (23:26)
[2016-10-21] MEDS ORDERED: DIPH/PERTUSS(ACELL)/TETANUS VAC/PF 0.5 ML SYR (>=10YO) IM PRN (23:26)
[2016-10-21] MEDS ORDERED: ZOLPIDEM TARTRATE 5 MG TABLET PO PRN (23:26)
[2016-10-21] MEDS ORDERED: ACETAMINOPHEN WITH CODEINE #3 TABLET PO PRN ×2 (23:26)
[2016-10-21] MEDS ORDERED: BENZOCAINE/MENTHOL AEROSOL SPRAY 56 ML TOP PRN (23:26)
[2016-10-21] MEDS ORDERED: DIBUCAINE 1% OINTMENT 28 GM TP PRN (23:26)
--- NOTE | 2016-10-21 23:33 | Admission Physical ---
Datetime Report Generated by CPN: 10/21/2016 23:33 CURRENT ADMISSION Hx Assessment: The History has been Reviewed and is Current Chief Complaint: Uterine Contractions Indication for Induction: Not Applicable Admit Plan: Admit to Unit; Initiate Labor Protocol ALLERGIES Medication Allergies: No Medication Allergies: No Known Allergies (10/21/2016) Medication Allergies: No Known Allergies (10/18/2016) Latex: No Latex Allergies Food Allergies: denies Environmental Allergies: denies OBSTETRICAL HISTORY EDC: 10/21/2016 00:00 : 2 Para: 0 Term: 0 : 0 Ectopic: 0 Livin Cesareans: 0 VBACs: 0 Multiple Births: 0 Gestational Diabetes: Yes Rh Sensitization: No Incompetent Cervix: No MARIA ELENA: No Infertility: No ART Treatment: No Uterine Anomaly: No IUGR: No Hx Previous C/S: No Macrosomia: No Hx Loss/Stillborn: No PIH: No Hx : No Placenta Previa/Abruption: No Depression/PP Depression: No PTL/PROM: No Post Hemorrhage: No Current Procedures: Ultrasound Obstetrical History Comments: G1: SAB in 2012 G2: current (diet-controlled GDM) SEE RECORDS Alcohol: No Marijuana : No Cocaine: No Other Illicit Drugs: No Cigarettes: Never Smoker. 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 Surgery: No Heart Disease: No Hosp/Surgery: No Autoimmune Disorder: No Anesthetic Complications: No Kidney Disease: No Abnormal Pap Smear: Yes Neuro/Epilepsy: No Psychiatric Disorders: No Other Medical Diseases: No Hepatitis/Liver Disease: No Significant Family History: No Varicosities/Phlebitis: No Trauma/Violence : No Thyroid Dysfunction: No Medical History Comments: Abnormal pap (pt does not remember when) INFECTIOUS HISTORY Gonorrhea: No Genital Herpes: No Chlamydia: Yes Tuberculosis: No Syphilis: No Hepatitis: No HIV/AIDS Exposure: No Rash or Viral Illness: No HPV: No Infectious History Comments: Positive Chlamydia August 2016, negative DG PHYSICAL EXAM General: Normal HEENT: Deferred Neurologic: Deferred Thyroid: Deferred Heart: Normal Lungs: Normal Breast: Deferred Back: Deferred Abdomen: Normal Genitourinary Exam: Normal Extremities: Normal DTRs: Normal Pelvic Type: Adequate Vital Signs: Reviewed; Within Normal Limits FETUS A EGA: 40.0 FHR Category: Category I Admit Comment: Term labor. gbs neg. epiural arom PLANS FOR LABOR AND DELIVERY Labor and Delivery: None Pain Management: Natural; Medications; Epidural Feeding Preference: Breast Benefit of Breast Feed Discussed: Yes Circumcision: N/A INFORMED CONSENT Signature: with User ID: [email or web address]
--- NOTE | 2016-10-21 23:41 | Delivery Summary ---
Del Sum A-C Datetime Report Generated by CPN: 10/21/2016 23:41 ADMISSION DATA Chief Complaint: Uterine Contractions Indication for Induction: Not Applicable Admission Impression: Term, Intrauterine ; Active Labor Admit Provider Comments: Term labor. gbs neg. epiural arom DELIVERY PERSONNEL Delivery Doctor:: Rachel Mulligan MD Labor and Delivery Nurse:: Allie Ulrich RNengineering clerk Nurse:: Adrienne Cottrell RN Boilermaker/IRRIGATOR SPRINKLING SYSTEM: Monster Walker CNA MATERNAL INFORMATION Delivery Anesthesia: Epidural Medications After Delivery: Pitocin Drip 20 Units/1000ml NSS Estimated Blood Loss (ml): 300 Maternal Complications: None Provider Comments: over intact perineum, no lacs. live female infant ap 8/9. spontaneous intact placenta 3vc. no complications LABOR SUMMARY EDC: 10/21/2016 00:00 No. Babies in Womb: 1 Attempted: No Labor Anesthesia: Epidural LABOR INFORMATION Reason for Induction: Not Applicable Onset of Labor: 10/21/2016 14:00 Complete Dilatation: 10/21/2016 19:32 Oxytocin: N/A Group B Beta Strep: neg Antibiotics # of Doses: 0 Antibiotics Time of Last Dose: n/a Steroids Given: None Reason Steroids Not Administered: Not Applicable MEMBRANES Membranes Rupture Method: Artificial Rupture of Membranes: 10/21/2016 19:59 (Annotations: Data stored by CPN on behalf of user) Length of Rupture (hr): 0.85 Amniotic Fluid Color: Light Meconium Amniotic Fluid Amount: None Amniotic Fluid Odor: Normal (Annotations: Data stored by [employer] on behalf of user) STAGES OF LABOR Stage 1 hr: 5 Stage 1 min: 32 Stage 2 hr: 1 Stage 2 min: 18 Stage 3 hr: 0 Stage 3 min: 9 Total Time in Labor hr: 6 Total Time in Labor min: 59 VAGINAL DELIVERY Episiotomy: None Laceration Extension: N/A Laceration Type: None Laceration Repair: Not Applicable Sponge Count Correct: N/A Sharps Count Correct: N/A CSECTION DELIVERY Primary Indication: N/A Secondary Indication: N/A CSection Incidence: N/A Labor: N/A Elective: N/A CSection Incision: N/A BABY A INFORMATION Delivery Date/Time: 10/21/2016 20:50 Method of Delivery: Vaginal Born in Route : No : N/A Forceps: N/A Vacuum Extraction: N/A Shoulder Dystocia : No PRESENTATION/POSITION BABY A Presentation: Cephalic Cephalic Presentation: Vertex Breech Presentation: N/A PLACENTA INFORMATION BABY A Placenta Delivery Time : 10/21/2016 20:59 Placenta Method of Delivery: Spontaneous Placenta Status: Delivered SCORES BABY A Heart Rate 1 min: >100 bpm Resp Effort 1 min: Good Cry Reflex Irritability 1 min: Cough or Sneeze or Pulls Away Muscle Tone 1 min: Active Motion Color 1 min: Blue/Pale Resuscitation Effort 1 min: Tactile Stimulation SCORE 1 MIN: 8 Heart Rate 5 min: >100 bpm Resp Effort 5 min: Good Cry Reflex Irritability 5 min: Cough or Sneeze or Pulls Away Muscle Tone 5 min: Active Motion Color 5 min: Body [place], Extremities Blue Resuscitation Effort 5 min: Tactile Stimulation SCORE 5 MIN: 9 INFORMATION BABY A Gestational Age at Delivery: 40.0 Gestational Status: Full Term- 39- 40.6 Weeks Infant Outcome : Liveborn Infant Condition : Stable Sex: Female IDENTIFICATION BABY A Infant Verification Date/Time: 10/21/2016 21:59 ID Band Number: [id number] Mother's Name Verified: Yes Infant RN Verifying : B. Ring Additional Verifying Personnel: R. Broderickel IRRIGATOR SPRINKLING SYSTEM WEIGHT/LENGTH BABY A Birthweight (gm): 2702 Weight (lb): 5 Infant Weight (oz): 15 Infant Length (in): 18.50 Infant Length (cm): 46.99 CORD INFORMATION BABY A No. Cord Vessels: 3 Nuchal Cord : N/A Cord Blood Taken: Yes-For Eval (Mom's Blood Type - or O+) Suction: Mouth; Nose ASSESSMENT BABY A Infant Complications: None Physical Findings at Delivery: Within Normal Limits Physical Findings- Other: See complete nursery assessment Respirations: Appears Normal Skin to Skin: Yes Skin to Skin Time (min): 60 Interventional Nurse/ALS Called : No Infant Care By: Zoila Cottrell RN Transferred To: Remains with Mother BABY B INFORMATION : N/A SIGNATURES Signature: with User ID: [email or web address]
[2016-10-22] MEDS: IBUPROFEN 800 MG TABLET PO SCH ×2 (05:16→13:22)
--- NOTE | 2016-10-22 07:01 | L&D Flow Sheet ---
LD Flowsheet Datetime Report Generated by CPN: 10/22/2016 07:00 Datetime: 10/21/2016 23:15 Stage of : Recovery (Allie Ring, RN) Pain Scale: 0 (Allie Ring, RN) Pain Presence: None/Denies (Allie Ring, RN) Pain Type: N/A (Allie Ring, RN) Datetime: 10/21/2016 23:00 Stage of : Recovery (Allie Ring, RN) Pain Scale: 0 (Allie Ring, RN) Pain Presence: None/Denies (Allie Ring, RN) Pain Type: N/A (Allie Ring, RN) Datetime: 10/21/2016 22:45 Stage of : Recovery (Allie Ring, RN) Pain Scale: 0 (Allie Ring, RN) Pain Presence: None/Denies (Allie Ring, RN) Pain Type: N/A (Allie Ring, RN) Datetime: 10/21/2016 22:30 Stage of : Recovery (Allie Ring, RN) Pain Scale: 0 (Allie Ring, RN) Pain Presence: None/Denies (Allie Ring, RN) Pain Type: N/A (Allie Ring, RN) Datetime: 10/21/2016 22:20 Stage of : Recovery (Allie Ring, RN) Datetime: 10/21/2016 22:19 NBP Sys/Devi/Mean (mmHg): 119 (QS system process) : 57 (QS system process) : 82 (QS system process) Pulse: 83 (QS system process) Respirations: 18 (Allie Ring, RN) Temperature (F): 98.4 (Allie Ring, RN) Temperature (C): 36.9 (QS system process) Temperature Route: Oral (Allie Ring, RN) Datetime: 10/21/2016 22:15 Stage of : Recovery (Allie Ring, RN) Pain Scale: 0 (Allie Ring, RN) Pain Presence: None/Denies (Allie Ring, RN) Pain Type: N/A (Allie Ring, RN) Datetime: 10/21/2016 22:00 Stage of : Recovery (Allie Ring, RN) Pain Scale: 0 (Allie Ring, RN) Pain Presence: None/Denies (Allie Ring, RN) Pain Type: N/A (Allie Ring, RN) Datetime: 10/21/2016 21:45 Stage of : Recovery (Allie Ring, RN) Pain Scale: 0 (Allie Ring, RN) Pain Presence: None/Denies (Allie Ring, RN) Pain Type: N/A (Allie Ring, RN) Datetime: 10/21/2016 21:30 Stage of : Recovery (Allie Ring, RN) Pain Scale: 0 (Allie Ring, RN) Pain Presence: None/Denies (Allie Ring, RN) Pain Type: N/A (Allie Ring, RN) Datetime: 10/21/2016 21:15 Stage of : Recovery (Allie Ring, RN) Pain Scale: 0 (Allie Ring, RN) Pain Presence: None/Denies (Allie Ring, RN) Pain Type: N/A (Allie Ring, RN) Datetime: 10/21/2016 21:00 Stage of : Recovery (Allie Ring, RN) Pain Scale: 0 (Allie Ring, RN) Pain Presence: None/Denies (Allie Ring, RN) Pain Type: N/A (Allie Ring, RN) Datetime: 10/21/2016 20:59 Pitocin (milliunit): Pitocin 20 Units in 1000ml NS (Allie Ring, RN) Datetime: 10/21/2016 20:58 NBP Sys/Devi/Mean (mmHg): 128 (QS system process) : 57 (QS system process) : 80 (QS system process) Pulse: 99 (QS system process) LaborFlag: Antepartum (QS system process) Datetime: 10/21/2016 20:49 Monitor Mode: External; Palpation (Allie Ring, RN) Quality: Moderate to Strong (Allie Ring, RN) Resting Tone (Palpate): Relaxed (Allie Ring, RN) Contraction Comments: Unable to accurately determine frequency or duration due to patient pushing, toco removed for delivery. (Allie Ring, RN) Comments: Unable to accurately determine; strip too short and tracing broken. (Allie Ring, RN) Datetime: 10/21/2016 20:45 Monitor Mode: External; Palpation (Allie Ring, RN) Frequency (min): 2-5.5 (Allie Ring, RN) Quality: Moderate to Strong (Allie Ring, RN) Duration (sec): 60-90 (Allie Ring, RN) Resting Tone (Palpate): Relaxed (Allie Ring, RN) Monitor Mode: External US (Allie Ring, RN) FHR Baseline Rate : 150 (Allie Ring, RN) Variability: Moderate 6-25 bpm (Allie Ring, RN) Accelerations: 15X15 (Allie Ring, RN) Decelerations: None (Allie Ring, RN) Datetime: 10/21/2016 20:43 NBP Sys/Devi/Mean (mmHg): 129 (QS system process) : 57 (QS system process) : 88 (QS system process) Pulse: 114 (QS system process) LaborFlag: Antepartum (QS system process) Datetime: 10/21/2016 20:39 Anesthesia Level Check: T10- Umbilicus (Allie Ring, RN) Datetime: 10/21/2016 20:36 Pushing: Coached on Pushing; Urge to Push (Allie Ring, RN) Pushing Position: Pushing with Contractions; Pushing Lithotomy (Allie Ring, RN) Pushing Progress: with Pushing (Allie Ring, RN) Datetime: 10/21/2016 20:30 Monitor Mode: External; Palpation (Allie Ring, RN) Frequency (min): 2-3 (Allie Ring, RN) Quality: Moderate to Strong (Allie Ring, RN) Duration (sec): 50-80 (Allie Ring, RN) Resting Tone (Palpate): Relaxed (Allie Ring, RN) Monitor Mode: External US (Allie Ring, RN) FHR Baseline Rate : 150 (Allie Ring, RN) Variability: Moderate 6-25 bpm (Allie Ring, RN) Accelerations: None (Allie Ring, RN) Decelerations: None (Allie Ring, RN) Pushing: Coached on Pushing; Urge to Push (Allie Ring, RN) Pushing Position: Pushing with Contractions; Pushing Lithotomy (Allie Ring, RN) Pushing Progress: Presenting Part Visible (Allie Ring, RN) Stage 2 Comments: RN remains continuously at bedside while patient pushing, (Allie Ring, RN) Datetime: 10/21/2016 20:28 NBP Sys/Devi/Mean (mmHg): 142 (QS system process) : 67 (QS system process) : 95 (QS system process) Pulse: 117 (QS system process) LaborFlag: Antepartum (QS system process) Datetime: 10/21/2016 20:24 Pushing: Urge to Push (Allie Ring, RN) Pushing Position: Pushing with Contractions; Pushing Lithotomy (Allie Ring, RN) Pushing Progress: Descent with Pushing; Presenting Part Visible; Pushing Effectively with Contractions (Allie Ring, RN) Communication Comments: Dr. Mulligan at bedside. (Allie Ring, RN) Datetime: 10/21/2016 20:15 Monitor Mode: External; Palpation (Allie Ring, RN) Frequency (min): 2-3.5 (Allie Ring, RN) Quality: Moderate to Strong (Allie Ring, RN) Duration (sec): 40-100 (Allie Ring, RN) Resting Tone (Palpate): Relaxed (Allie Ring, RN) Monitor Mode: External US (Allie Ring, RN) FHR Baseline Rate : 150 (Allie Ring, RN) Variability: Moderate 6-25 bpm (Allie Ring, RN) Accelerations: None (Allie Ring, RN) Decelerations: None (Allie Ring, RN) Datetime: 10/21/2016 20:13 NBP Sys/Devi/Mean (mmHg): 127 (QS system process) : 62 (QS system process) : 87 (QS system process) Pulse: 86 (QS system process) LaborFlag: Antepartum (QS system process) Datetime: 10/21/2016 20:08 Pushing: Coached on Pushing (Allie Ring, RN) Pushing Position: Pushing with Contractions; Pushing Lithotomy (Allie Ring, RN) Pushing Progress: Presenting Part Visible (Allie Ring, RN) Datetime: 10/21/2016 20:06 I/O Interventions: Larios Discontinued (Allie Ring, RN) Datetime: 10/21/2016 20:00 Monitor Mode: External; Palpation (Allie Ring, RN) Frequency (min): 2.5-4 (Allei Ring, RN) Quality: Moderate to Strong (Allie Ring, RN) Duration (sec): 60-110 (Allie Ring, RN) Resting Tone (Palpate): Relaxed (Allie Ring, RN) Monitor Mode: External US (Allie Ring, RN) FHR Baseline Rate : 145 (Allie Ring, RN) Variability: Moderate 6-25 bpm (Allie Ring, RN) Accelerations: 15X15 (Allie Ring, RN) Decelerations: None (Allie Ring, RN) Anesthesia Level Check: T10- Umbilicus (Allie Ring, RN) Datetime: 10/21/2016 19:59 Membrane Status: Ruptured (Allie Ring, RN) Membranes Rupture Method: Artificial (Allie Ring, RN) Amniotic Fluid Color: Light Meconium (Allie Ring, RN) Amniotic Fluid Amount: None (Allie Ring, RN) Datetime: 10/21/2016 19:57 NBP Sys/Devi/Mean (mmHg): 114 (QS system process) : 66 (QS system process) : 85 (QS system process) Pulse: 101 (QS system process) Communication: RN at Bedside; Provider at Bedside (Allie Ulrich RN) LaborFlag: Antepartum (QS system process) Datetime: 10/21/2016 19:52 NBP Sys/Devi/Mean (mmHg): 103 (QS system process) : 56 (QS system process) : 74 (QS system process) Pulse: 93 (QS system process) LaborFlag: Antepartum (QS system process) Datetime: 10/21/2016 19:48 NBP Sys/Devi/Mean (mmHg): 117 (QS system process) : 64 (QS system process) : 84 (QS system process) Pulse: 93 (QS system process) LaborFlag: Antepartum (QS system process) Datetime: 10/21/2016 19:45 Monitor Mode: External; Palpation (Adrienne Cottrell, RN) Frequency (min): 2-4 (Adrienne Cottrell, RN) Quality: Moderate to Strong (Adrienne Ronit, RN) Duration (sec): 70-90 (Adrienne Baiyadi, RN) Duration Criteria: Less than Two 120 Second Contractions (Adrienne Cottrell, RN) Pattern: Normal: <= 5 Contractions in 10 Minutes (Adrienne Baiyadi, RN) Resting Tone (Palpate): Relaxed (Adrienne Cottrell, RN) Monitor Mode: External US (Adrienne Cottrell, RN) FHR Baseline Rate : 150 (Adrienne Baidy, RN) Variability: Moderate 6-25 bpm (Adrienne Baidy, RN) Accelerations: 15X15 (Adrienne Baidy, RN) Decelerations: None (Adrienne Baiyadi, RN) Datetime: 10/21/2016 19:42 NBP Sys/Devi/Mean (mmHg): 122 (QS system process) : 61 (QS system process) : 86 (QS system process) Pulse: 117 (QS system process) LaborFlag: Antepartum (QS system process) Datetime: 10/21/2016 19:40 Anesthesia Level Check: T10- Umbilicus (Allie Ring, RN) Datetime: 10/21/2016 19:37 NBP Sys/Devi/Mean (mmHg): 117 (QS system process) : 65 (QS system process) : 86 (QS system process) Pulse: 99 (QS system process) LaborFlag: Antepartum (QS system process) Datetime: 10/21/2016 19:35 Communication Comments: Dr. Mulligan made aware of exam, and states she is on her way in (Era Lea, RN) Datetime: 10/21/2016 19:32 Dilatation (cm): 10.0 (Allie Ring, RN) Effacement (%): 100 (Allie Ring, RN) Station: 2 (Allie Ring, RN) Exam by: B Ring RN (Allie Ring, RN) Datetime: 10/21/2016 19:31 NBP Sys/Devi/Mean (mmHg): 107 (QS system process) : 57 (QS system process) : 75 (QS system process) Pulse: 85 (QS system process) Respirations: 20 (Allie Ring, RN) Temperature (F): 98.0 (Allie Ring, RN) Temperature (C): 36.7 (QS system process) Temperature Route: Oral (Allie Ring, RN) I/O Interventions: Larios Cath Inserted (Allie Ring, RN) Patient Care Comments: 14f clear yellow urine noted. (Allie Ring, RN) LaborFlag: Antepartum (QS system process) Datetime: 10/21/2016 19:30 NBP Sys/Devi/Mean (mmHg): 110 (QS system process) : 56 (QS system process) : 79 (QS system process) Pulse: 100 (QS system process) Monitor Mode: External; Palpation (Adrienne Cottrell RN) Frequency (min): 1.5-4 (Adrienne Cottrell, RN) Quality: Moderate to Strong (Adrienne Cottrell, RN) Duration (sec): 60-90 (Adrienne Cottrell, RN) Duration Criteria: Less than Two 120 Second Contractions (Adrienne Cottrell, RN) Pattern: Normal: <= 5 Contractions in 10 Minutes (Adrienne Cottrell, RN) Resting Tone (Palpate): Relaxed (Adrienne Cottrell, RN) Monitor Mode: External US (Adrienne Cottrell, RN) FHR Baseline Rate : 150 (Adrienne Cottrell, RN) Variability: Moderate 6-25 bpm (Adrienne Baiyadi, RN) Accelerations: 15X15 (Adrienne Cottrell, RN) Decelerations: None (Adrienne Cottrell, RN) LaborFlag: Antepartum (QS system process) Datetime: 10/21/2016 19:29 NBP Sys/Devi/Mean (mmHg): 108 (QS system process) : 55 (QS system process) : 76 (QS system process) Pulse: 91 (QS system process) Epidural Procedure Other: Pump Started (Allie Ring, RN) LaborFlag: Antepartum (QS system process) Datetime: 10/21/2016 19:28 NBP Sys/Devi/Mean (mmHg): 113 (QS system process) : 60 (QS system process) : 80 (QS system process) Pulse: 86 (QS system process) LaborFlag: Antepartum (QS system process) Datetime: 10/21/2016 19:27 NBP Sys/Devi/Mean (mmHg): 118 (QS system process) : 64 (QS system process) : 85 (QS system process) Pulse: 100 (QS system process) LaborFlag: Antepartum (QS system process) Datetime: 10/21/2016 19:26 NBP Sys/Devi/Mean (mmHg): 116 (QS system process) : 66 (QS system process) : 86 (QS system process) Pulse: 115 (QS system process) Pulse: 107 (QS system process) SpO2 (%): 90 (QS system process) LaborFlag: Antepartum (QS system process) Datetime: 10/21/2016 19:25 NBP Sys/Devi/Mean (mmHg): 129 (QS system process) : 68 (QS system process) : 94 (QS system process) Pulse: 110 (QS system process) LaborFlag: Antepartum (QS system process) Datetime: 10/21/2016 19:24 NBP Sys/Devi/Mean (mmHg): 130 (QS system process) : 70 (QS system process) : 94 (QS system process) Pulse: 96 (QS system process) Pulse: 100 (QS system process) SpO2 (%): 98 (QS system process) LaborFlag: Antepartum (QS system process) Datetime: 10/21/2016 19:23 NBP Sys/Devi/Mean (mmHg): 140 (QS system process) : 76 (QS system process) : 102 (QS system process) Pulse: 99 (QS system process) LaborFlag: Antepartum (QS system process) Datetime: 10/21/2016 19:22 NBP Sys/Devi/Mean (mmHg): 151 (QS system process) : 83 (QS system process) : 108 (QS system process) Pulse: 86 (QS system process) Epidural Procedure: Cath Placed; Loading Dose (Allie Ring, RN) LaborFlag: Antepartum (QS system process) Datetime: 10/21/2016 19:21 Epidural Procedure: Test Dose (Allie Ring, RN) Datetime: 10/21/2016 19:19 Pulse: 104 (QS system process) SpO2 (%): 97 (QS system process) LaborFlag: Antepartum (QS system process) Datetime: 10/21/2016 19:18 Level of Consciousness: Fully Conscious (Allie Ring, RN) DTR's/Clonus: DTRs 2+; No Clonus (Allie Ring, RN) Headache: Denies (Allie Ring, RN) Breath Sounds, Left: Clear and Equal (Allie Ring, RN) Breath Sounds, Right: Clear and Equal (Allie Ring, RN) Nausea/Vomiting: Denies (Allie Ring, RN) RUQ Epigastric Pain: Denies (Allie Ulrich RN) Datetime: 10/21/2016 19:15 Monitor Mode: External; Palpation (Adrienne Cottrell RN) Frequency (min): 2-3 (Adrienne Cottrell RN) Quality: Moderate to Strong (Adrienne Cottrell RN) Duration (sec): 70-120 (Adrienne Cottrell RN) Duration Criteria: More than Two 120 Second or Greater Contractions (Adrienne Cottrell RN) Pattern: Normal: <= 5 Contractions in 10 Minutes (Adrienne Cottrell RN) Resting Tone (Palpate): Relaxed (Adrienne Cottrell RN) Monitor Mode: External US (Adrienne Cottrell RN) FHR Baseline Rate : 150 (Adrienne Cottrell RN) Variability: Moderate 6-25 bpm (Adrienne Cottrell RN) Accelerations: 15X15 (Adrienne Cottrell RN) Decelerations: Variable (Adrienne Cottrell RN) Procedure Verify: Correct Patient Identity; Correct Side and Site are Marked; Accurate Procedure Consent Form; Agreement on Procedure to be Done; Correct Patient Position; Relevant Images and Results are Properly Labeled and Displayed; Addressed Need to Administer Antibiotics or Fluids for Irrigation; Safety Precautions Based on Patient History or Medication Use (Allie Ulrich RN) Anesthesia Plans: Epidural (Allie Ulrich RN) Epidural Positioning: Sitting (Allie Ulrich RN) Datetime: 10/21/2016 19:14 Pulse: 100 (QS system process) SpO2 (%): 98 (QS system process) LaborFlag: Antepartum (QS system process) Datetime: 10/21/2016 19:12 Procedure Verify: Correct Patient Identity; Correct Side and Site are Marked; Accurate Procedure Consent Form; Agreement on Procedure to be Done; Correct Patient Position; Relevant Images and Results are Properly Labeled and Displayed; Addressed Need to Administer Antibiotics or Fluids for Irrigation; Safety Precautions Based on Patient History or Medication Use (Allie Ring, RN) Anesthesia Plans: Epidural (Allie Ring, RN) Epidural Positioning: Sitting (Alile Ring, RN) Anesthesia Comments: Dr. Humphrey at bedside (Allie Ring, RN) Datetime: 10/21/2016 19:10 Communication Comments: handoff report given to B Ring RN care relinquished. (Adrienne Cottrell, RN) Datetime: 10/21/2016 19:09 Procedure Verify: Correct Patient Identity; Correct Side and Site are Marked; Accurate Procedure Consent Form; Agreement on Procedure to be Done; Relevant Images and Results are Properly Labeled and Displayed; Addressed Need to Administer Antibiotics or Fluids for Irrigation; Safety Precautions Based on Patient History or Medication Use (Allie Ulrich RN) Anesthesia Plans: Epidural (Allie Ulrich, RN) Datetime: 10/21/2016 19:00 Monitor Mode: External; Palpation (Yadira Jasmyn, RN) Frequency (min): 2-3 (Yadira Jasmyn, RN) Quality: Moderate to Strong (Yadira Jasmyn, RN) Duration (sec): 60-80 (Yadira Jasmyn, RN) Resting Tone (Palpate): Relaxed (Yadira Jasmyn, RN) Monitor Mode: External US (Yadira Jasmyn, RN) FHR Baseline Rate : 145 (Yadira Jasmyn, RN) Variability: Moderate 6-25 bpm (Yadira Jasmyn, RN) Accelerations: 15X15 (Yadira Jasmyn, RN) Decelerations: None (Yadira Vines RN)
[2016-10-22 07:51] LABS: HEMATOCRIT 26.6 % (36.0-47.0); HGB HCT DIFFERENCE -0.5; MEAN CORPUSCULAR HEMOGLOBIN 29.7 pg (27.0-33.4); MEAN CORPUSCULAR HGB CONC 32.9 g/dL (32.0-36.0); MEAN CORPUSCULAR VOLUME 90 fl (80-97); RED BLOOD COUNT 2.94 10^6/uL (3.72-5.28); RED CELL DISTRIBUTION WIDTH 14.4 % (11.5-14.0); WHITE BLOOD COUNT 18.1 10^3/uL (4.0-10.5)
[2016-10-22 08:13] LABS: HEMOGLOBIN 8.7 g/dL (12.0-15.5)
--- NOTE | 2016-10-22 09:54 | PDOC PROGRESS REPORT ---
Subjective-OB Subjective: Post Delivery Day: 26 year old. Denies any needs at this time Physical Exam (OB) Vital Signs: Temp Pulse Resp BP Pulse Ox 97.8 F 76 18 119/65 100 10/22/16 08:00 10/22/16 08:00 10/22/16 08:00 10/22/16 08:00 10/22/16 08:00 Intake & Output 10/21/16 10/22/16 10/23/16 06:59 06:59 06:59 Weight 62.75 kg - Lochia Lochia Amount: Scant < 10 ml Lochia Color: Rubra/Red - Abdomen Description: Soft, Round Hernia Present: No Bowel Sounds: Normoactive Flatus Presence: Present Stool: No Fundal Description: Firm, Midline Fundal Height: u/u - u/2 Objective-Diagnostic Laboratory: 10/22/16 07:08 10/21/16 10/21/16 10/22/16 18:40 18:40 07:08 WBC 17.5 H 18.1 H RBC 3.94 2.94 L Hgb 11.6 L 8.7 L D Hct 35.3 L 26.6 L MCV 90 90 MCH 29.4 29.7 MCHC 32.9 32.9 RDW 14.3 H 14.4 H Plt Count 212 197 Seg Neutrophils % 90.9 H Lymphocytes % 5.7 L Monocytes % 3.3 Eosinophils % 0.0 Basophils % 0.1 Absolute Neutrophils 15.9 H Absolute Lymphocytes 1.0 Absolute Monocytes 0.6 Absolute Eosinophils 0.0 Absolute Basophils 0.0 Blood Type O POSITIVE Antibody Screen NEGATIVE
[2016-10-22] MEDS: FERROUS SULFATE 325 MG TABLET PO SCH ×2 (10:37→17:20)
[2016-10-22] MEDS: PRENATAL VITAMIN W-O CA NO5/FE FUMARATE/FA CAPSULE PO SCH (10:37)
[2016-10-22] MEDS: DOCUSATE SODIUM 100 MG CAPSULE PO SCH ×2 (10:37→17:20)
[2016-10-22] MEDS: SENNOSIDES/DOCUSATE 8.6-50 MG 1 EACH TABLET PO SCH (10:38)
--- NOTE | 2016-10-22 18:01 | L&D Current Admission ---
Current Admit Datetime Report Generated by CPN: 10/22/2016 18:00 ADMISSION INFORMATION Current Admit Date/Time: 10/21/2016 18:19 (10/21/2016 18:19:Adrienne Cottrell RN) Reason for Admission: Onset of Labor (10/21/2016 18:19:Adrienne Cottrell RN) Chief Complaint: Contractions (10/21/2016 18:21:Adrienne Cottrell RN) EGA per Dates: 40.0 (10/21/2016 18:19:QS system process) Method of Arrival: Wheelchair (10/21/2016 18:19:Adrienne Cottrell RN) Admitted From: Home (10/21/2016 18:19:Adrienne Cottrell RN) Reason for Induction: Not Applicable (10/21/2016 18:19:Adrienne Cottrell RN) Records Available: Yes (10/21/2016 18:19:Adrienne Cottrell RN) General Admission Information: Reviewed; Updated; Confirmed (10/21/2016 18:19:Adrienne Cottrell RN) General Admission Reviewed By: Gale Cottrell RN (10/21/2016 18:19:Adrienne Cottrell RN) BELONGINGS/ADVANCED DIRECTIVES Other Belongings: see valuable consent (10/21/2016 18:19:Adrienne Cottrell RN) Disposition of Belongings: Kept with Patient (10/21/2016 18:19:Adrienne Cottrell RN) Advance Direct for Healthcare: No, and Wants No Information (10/21/2016 18:19:Adrienne Cottrell RN) Durable Power of Manhole Stripper: No (10/21/2016 18:19:Adrienne Cottrell RN) Living Will: No (10/21/2016 18:19:Adrienne Cottrell RN) Organ Donor: No (10/21/2016 18:19:Adrienne Cottrell RN) Pt Rights Information Given: Yes (10/21/2016 18:19:Adrienne Cottrell RN) Pt Understands Pt Rights: Yes (10/21/2016 18:19:Adrienne Cottrell RN) LEARNING ASSESSMENT Knowledge Level: Understands Diagnosis (10/21/2016 18:19:Adrienne Cottrell RN) Barriers to Learning: None (10/21/2016 18:19:Adrienne Cottrell RN) Learning Readiness: Motivated (10/21/2016 18:Shilo:Adrienne Cottrell RN) Learns Best By: 1 to 1 Instruction; Demonstration (10/21/2016 18:Shilo:Adrienne Cottrell RN) Learning Needs: Labor and Delivery Process; Pain Management; Symptoms to Report (10/21/2016 18:19:Adrienne Cottrell RN) DOMESTIC VIOLANCE SCREENING Dom Viol Threatened/Hurt: No (10/21/2016 18:19:Adrienne Cottrell RN) Hx of Abuse/Neglect past 2yrs: No (10/21/2016 18:19:Adrienne Cottrell RN) Feel Unsafe Going Home: No (10/21/2016 18:19:Adrienne Cottrell RN) Addt'l Observ Indicating Abuse: No (10/21/2016 18:19:Adrienne Cottrell RN) Reason Unable to Complete Screen: N/A, Screen Completed (10/21/2016 18:19:Adrienne Cottrell RN) Considered Personal Harm/Suicide: No (10/21/2016 18:19:Adrienne Cottrell RN) NUTRITIONAL/FUNCTIONAL SCREENING Problem with Appetite >5 Days: No (10/21/2016 18:19:Adrienne Cottrell RN) Chew/Swallow Difficulties: No (10/21/2016 18:19:Adrienne Cottrell RN) Inappropriate Wt Gain/Loss: No (10/21/2016 18:19:Adrienne Cottrell RN) Presence Skin Breakdown/Ulcer: No (10/21/2016 18:19:Adrienne Cottrell RN) Special Diet: No (10/21/2016 18:19:Adrienne Cottrell RN) Pt Requests Binder Layer Visit: No (10/21/2016 18:19:Adrienne Cottrell RN) Hx of Any of the Following?: N/A (10/21/2016 18:19:Adrienne Cottrell RN) New Diagnosis of: N/A (10/21/2016 18:19:Adrienne Cottrell RN) Requires Assist w/Ambulation: No (10/21/2016 18:19:Adrienne Cottrell RN) Uses Assist Device to Ambulate: No (10/21/2016 18:19:Adrienne Cottrell RN) Pt Requires Help w/ADL's: No (10/21/2016 18:19:Adrienne Cottrell RN)
--- NOTE | 2016-10-22 18:01 | L&D General Admission ---
General Admit Datetime Report Generated by CPN: 10/22/2016 18:00 INFORMATION Patient Age: 26 (09/27/2016 14:09:QS system process) EDC: 10/21/2016 00:00 (10/18/2016 12:14:Tanya Horan RN) : 2 (10/18/2016 12:14:Tanya Horan RN) Para: 0 (10/18/2016 12:14:Tanya Horan RN) Term: 0 (10/18/2016 12:14:NEAL Dalal) : 0 (10/18/2016 12:14:NEAL Dalal) Livin (10/18/2016 12:14:NEAL Dalal) Cesareans: 0 (10/18/2016 12:14:NEAL Dalal) VBACs: 0 (10/18/2016 12:14:NEAL Dalal) Ectopic: 0 (10/18/2016 12:14:NEAL Dalal) Multiple Births: 0 (10/18/2016 12:14:Jody De Paz [facility]) Baby, Number in Womb: 1 (10/18/2016 12:14:Jody De Paz [facility]) CARE Primary Dielectric 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 Operator: [facility] (10/18/2016 12:14:Tanya Horan RN) Month of 1st Visit: March (10/18/2016 12:14:Stephanie Saucedo RN) Adequate Care: Yes (10/18/2016 12:14:Stephanie Saucedo RN) Prepregnancy Weight (lb): 101 (10/18/2016 12:14:Stephanie Saucedo RN) Prepregnancy Weight (kg): 45.9 (10/18/2016 12:14:QS system process) Height (in): 62 (10/21/2016 23:32:QS system process) ALLERGIES Medication Allergy: No (10/18/2016 12:14:Tanya Horan RN) Medication Allergies: No Known Allergies (10/21/2016) (10/21/2016 04:32:QS system process) Latex Allergy: No Latex Allergies (10/18/2016 12:14:Tanya Horan RN) Food Allergies: denies (10/18/2016 12:14:Allie Ulrich RN) Environmental Allergies: denies (10/18/2016 12:14:Allie Ulrich RN) COMMUNICATION Primary Language: Mongolian (10/18/2016 12:14:Tanya Horan RN) Medical Tx Preferred Language: Mongolian (10/18/2016 12:14:NEAL Dalal) Communication Barrier(s): None (10/18/2016 12:14:NEAL Dalal) DEMOGRAPHICS Address: [address] [place] [address] [place] [address] (09/27/2016 14:09:QS system process) Zipcode: [id number] (09/27/2016 14:09:QS system process) Home (09/27/2016 14:09:QS system process) Work (10/18/2016 12:12:QS system process) N: [phone] (09/27/2016 14:09:QS system process) Next of Kin Name: JOSHUA CASAREZ (09/27/2016 14:09:QS system process) Next of Kin (09/27/2016 14:09:QS system process) Next of Kin Relationship: SPO (09/27/2016 14:09:QS system process) Date of : 1990 (09/27/2016 14:09:QS system process) Marital Status: (09/27/2016 14:09:QS system process) Sex: Female (09/27/2016 14:09:QS system process) Race: Other (09/27/2016 14:09:QS system process) Ethnicity: Non- or (09/27/2016 14:09:QS system process) Congregational: None (09/27/2016 14:09:QS system process) DRUG AND ALCOHOL USE Alcohol: No (10/18/2016 12:14:Allie Ring, RN) Cigarettes: Never Smoker. [id number] (10/18/2016 12:14:Allie Ring, RN) Marijuana: No (10/18/2016 12:14:Allie Ring, RN) Cocaine: No (10/18/2016 12:14:Allie Ring, RN) Other Illicit Drugs: No (10/18/2016 12:14:Allie Ring, RN) VACCINE HISTORY Influenza Vaccine: Yes (10/18/2016 12:14:Allie Ulrich RN) Pneumococcal Vaccine: Uncertain (10/18/2016 12:14:Allie Ulrich RN) Tetanus Vaccine: Uncertain (10/18/2016 12:14:Allie Ulrich RN) Tdap Vaccine: Yes (10/18/2016 12:14:Allie Ulrich RN) Hepatitis B Vaccine: Yes (10/18/2016 12:14:Allie Ulrich RN) Powder Coater: [facility] (10/18/2016 12:14:Adrienne Cottrell RN) Feeding Preference: Breast (10/18/2016 12:14:Allie Ulrich RN) Benefit of Breast Feed Discussed: Yes (10/18/2016 12:14:Allie Ulrich RN) Circumcision: N/A (10/18/2016 12:14:Allie Ulrich RN) Classes Attended: No (10/18/2016 12:14:Allie Ulrich RN) Tubal Ligation: No (10/18/2016 12:14:Allie Ulrich RN) Tubal Authorization Signed: N/A (10/18/2016 12:14:Allie Ulrich RN) Consent: N/A (10/18/2016 12:14:Allie Ulrich RN) Pain Management Plans: Natural; Medications; Epidural (10/18/2016 12:14:Allie Ulrich RN) Plans for Labor and Delivery: None (10/18/2016 12:14:Allie Ulrich RN) Support Person: Joshua Casarez (10/18/2016 12:14:Allie Ulrich RN) Support Person Relationship: (10/18/2016 12:14:Allie Ulrich RN) Cultural/Spritual Practice: No (10/18/2016 12:14:Allie Ulrich RN) Spir/Cult Dietary Needs: No (10/18/2016 12:14:Allie Ulrich RN) LIVING SITUATION/DISCHARGE PLAN Living Arrangements: House (10/18/2016 12:14:Allie Ulrich RN) Adequate Access to:: Electric; Heat; Refrigeration; Plumbing/Running water; Phone; Transportation (10/18/2016 12:14:Allie Ulrich RN) WIC Program: [facility]a (10/18/2016 12:14:Allie Ulrich RN) Discharge Quality Process Lead Person: Joshua (10/18/2016 12:14:Allie Ulrich RN) Person to Help after Discharge: Joshua (10/18/2016 12:14:Allie Ulrich RN) Currently Using Commun Resources: [facility]lyssa (10/18/2016 12:14:Allie Ulrich RN) Outside Agency/[employer]er: [facility]lyssa (10/18/2016 12:14:Allie Ulrich RN) Car Seat for Discharge: Yes (10/18/2016 12:14:Allie Ulrich RN) Pt Contact w/infant Post : N/A (10/18/2016 12:14:Allie Ulrich RN) LABS Blood Type: O Positive (10/18/2016 12:14:Tanya Horan RN) Antibody Screen: neg (10/18/2016 12:14:Tanya Horan RN) Hemoglobin: 8.7 L (10/22/2016 07:08:QS system process) Hematocrit: 26.6 L (10/22/2016 07:08:QS system process) MCV: 90 (10/22/2016 07:08:QS system process) Group Beta Strep: neg (10/18/2016 12:14:Tanya Horan RN) Gonorrhea: Negative (10/18/2016 12:14:Tanya Horan RN) Chlamydia: Negative (10/18/2016 12:14:Stephanie Saucedo RN) RPR/VDRL: Nonreactive (10/18/2016 12:14:Tanya Horan RN) Hepatitis B: Negative (10/18/2016 12:14:Tanya Horan RN) Rubella: Non-Immune (10/18/2016 12:14:Stephanie Saucedo RN) OB/PREVIOUS HISTORY Previous Procedures: None (10/18/2016 12:14:Allie Ulrich RN) Current Procedures: Ultrasound (10/18/2016 12:14:Allie Ulrich RN) History of Previous : No (10/18/2016 12:14:Allie Ulrich RN) History of Gestational Diabetes: Yes (10/18/2016 12:14:Allie Ulrich RN) History of PIH: No (10/18/2016 12:14:Allie Ulrich RN) History of Incompetent Cervix: No (10/18/2016 12:14:Allie Ulrich RN) History of Placenta Previa/Abrup: No (10/18/2016 12:14:Allie Ulrich RN) History of Macrosomia: No (10/18/2016 12:14:Allie Ulrich RN) History of IUGR: No (10/18/2016 12:14:Allie Ulrich RN) History of Hemorrhage: No (10/18/2016 12:14:Allie Ulrich RN) History of Loss/Stillborn: No (10/18/2016 12:14:Allie Ulrich RN) History of : No (10/18/2016 12:14:Allie Ulrich RN) History of D (Rh) Sensitization: No (10/18/2016 12:14:Allie Ulrich RN) History Recurrent Loss/Stillborn: No (10/18/2016 12:14:Allie Ulrich RN) History Depression/PP Depression: No (10/18/2016 12:14:Allie Ulrich RN) History of Uterine Anomaly/MARIA ELENA: No (10/18/2016 12:14:Allie Ulrich RN) History of Infertility: No (10/18/2016 12:14:Allie Ulrich RN) History of ART Treatment: No (10/18/2016 12:14:Allie Ulrich RN) History of MARIA ELENA: No (10/18/2016 12:14:Allie Ulrich RN) Comments Obstetrical History: G1: SAB in 2012 G2: current (diet-controlled GDM) (10/18/2016 12:14:Allie Ulrich RN) MEDICAL HISTORY Med Hx Diabetes: Yes (10/18/2016 12:14:Allie Ulrich RN) Diabetes Type: Gestational Diabetes (10/18/2016 12:14:Allie Ulrich RN) Med Hx Hypertension: No (10/18/2016 12:14:Allie Ulrich RN) Med Hx Heart Disease: No (10/18/2016 12:14:Allie Ulrich RN) Med Hx Autoimmune Disorder: No (10/18/2016 12:14:Allie Ulrich RN) Med Hx Kidney Disease/UTI: No (10/18/2016 12:14:Allie Ulrich RN) Med Hx Neurologic/Epilepsy: No (10/18/2016 12:14:Allie Ulrich RN) Med Hx Psychiatric Disorders: No (10/18/2016 12:14:Allie Ulrich RN) Med Hx Hepatitis/Liver Disease: No (10/18/2016 12:14:Allie Ulrich RN) Med Hx Varicosities/Phlebitis: No (10/18/2016 12:14:Allie Ulrich RN) Med Hx Thyroid Dysfunction: No (10/18/2016 12:14:Allie Ulrich RN) Med Hx Trauma/Violence: No (10/18/2016 12:14:Allie Ulrich RN) Med Hx Blood Transfusion: No (10/18/2016 12:14:Allie Ulrich RN) Med Hx Pulmonary (Asthma,TB): No (10/18/2016 12:14:Allie Ulrich RN) Med Hx Breast: No (10/18/2016 12:14:Allie Ulrich RN) Med Hx PASTRY SOUS CHEF Surgery: No (10/18/2016 12:14:Allie Ulrich RN) Med Hx Hospitalization/Surgery: No (10/18/2016 12:14:Allie Ulrich RN) Med Hx Anesthetic Complications: No (10/18/2016 12:14:Allie Ulrich RN) Med Hx Abnormal Pap Smear: Yes (10/18/2016 12:14:Allie Ulrich RN) Other Medical Diseases: No (10/18/2016 12:14:Allie Ulrich RN) Med Hx Significant Family Hx: No (10/18/2016 12:14:Allie Ulrich RN) Details of Med/Surg Hx: Abnormal pap (pt does not remember when) (10/18/2016 12:14:Allie Ulrich RN) INFECTIOUS HISTORY Inf Hx Gonorrhea: No (10/18/2016 12:14:Allie Ulrich RN) Inf Hx Chlamydia: Yes (10/18/2016 12:14:Tanya Horan RN) Inf Hx Syphilis: No (10/18/2016 12:14:Allie Ulrich RN) Inf Hx HIV/AIDS: No (10/18/2016 12:14:Allie Ulrich RN) Inf Hx Human Papilloma Virus: No (10/18/2016 12:14:Allie Ulrich RN) Inf Hx Pt/Partner Genital Herpes: No (10/18/2016 12:14:Allie Ulrich RN) Inf Hx Tuberculosis/Exposure: No (10/18/2016 12:14:Allie Ulrich RN) Inf Hx Hepatitis B,C: No (10/18/2016 12:14:Allie Ulrich RN) Inf Hx Rash or Viral Illness: No (10/18/2016 12:14:Allie Ulrich RN) Details of Infectious Hx: Positive Chlamydia August 2016, negative DG (10/18/2016 12:14:Tanya Horan RN) GENETIC HISTORY Gen Hx Age >=35 at RICKEY: No (10/18/2016 12:14:Allie Ulrich RN) Gen Hx Thalassemia: No (10/18/2016 12:14:Allie Ulrich RN) Gen Hx Congenital Heart Defect: No (10/18/2016 12:14:Allie Ulrich RN) Gen Hx Neural Tube Defect: No (10/18/2016 12:14:Allie Ulrich RN) Gen Hx Down's Syndrome: No (10/18/2016 12:14:Allie Ulrich RN) Gen Hx Epi-Sachs: No (10/18/2016 12:14:Allie Ulrich RN) Gen Hx Nghia: No (10/18/2016 12:14:Allie Ulrich RN) Gen Hx Familial Dysautonomia: No (10/18/2016 12:14:Allie Ulrich RN) Gen Hx Sickle Cell Disease/Trait: No (10/18/2016 12:14:Allie Ulrich RN) Gen Hx Hemophilia/Blood Disorder: No (10/18/2016 12:14:Allie Ulrich RN) Gen Hx Muscular Dystrophy: No (10/18/2016 12:14:Allie Ulrich RN) Gen Hx Cystic Fibrosis: No (10/18/2016 12:14:Allie Ulrich RN) Gen Hx Huntingtons Chorea: No (10/18/2016 12:14:Allie Ulrich RN) Gen Hx Mental Retardation/Autism: No (10/18/2016 12:14:Allie Ulrich RN) Gen Hx Tested for Fragile X: No (10/18/2016 12:14:Allie Ulrich RN) Gen Hx Other Inher/Chromosomal: No (10/18/2016 12:14:Allie Ulrich RN) Gen Hx Maternal Metabolic DO: No (10/18/2016 12:14:Allie Ulrich RN) Gen Hx Pt Father or FOB Defect: No (10/18/2016 12:14:Allie Ulrich RN) Gen Hx Other Genetic History: No (10/18/2016 12:14:Allie Ulrich RN) Gen Hx Drugs/Meds since LMP: Yes (10/18/2016 12:14:Allie Ulrich RN) Gen Hx Medications: PNV (10/18/2016 12:14:Allie Ulrich RN) Details of Genetic History: denies (10/18/2016 12:14:Allie Ulrich RN)
[2016-10-23] MEDS: IBUPROFEN 800 MG TABLET PO SCH ×2 (05:02→13:35)
--- NOTE | 2016-10-23 06:01 | L&D General Admission ---
General Admit Datetime Report Generated by CPN: 10/23/2016 06:00 INFORMATION Patient Age: 26 (09/27/2016 14:09:QS system process) EDC: 10/21/2016 00:00 (10/18/2016 12:14:Tanya Horan RN) : 2 (10/18/2016 12:14:Tanya Horan RN) Para: 0 (10/18/2016 12:14:Tanya Horan RN) Term: 0 (10/18/2016 12:14:NEAL Dalal) : 0 (10/18/2016 12:14:NEAL Dalal) Livin (10/18/2016 12:14:NEAL Dalal) Cesareans: 0 (10/18/2016 12:14:NEAL Dalal) VBACs: 0 (10/18/2016 12:14:NEAL Dalal) Ectopic: 0 (10/18/2016 12:14:NEAL Dalal) Multiple Births: 0 (10/18/2016 12:14:Jody De Paz [facility]) Baby, Number in Womb: 1 (10/18/2016 12:14:Jody De Paz [facility]) 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 (10/18/2016 12:14:Tanya Horan RN) Month of 1st Visit: March (10/18/2016 12:14:Stephanie Saucedo RN) Adequate Care: Yes (10/18/2016 12:14:Stephanie Saucedo RN) Prepregnancy Weight (lb): 101 (10/18/2016 12:14:Stephanie Saucedo RN) Prepregnancy Weight (kg): 45.9 (10/18/2016 12:14:QS system process) Height (in): 62 (10/21/2016 23:32:QS system process) ALLERGIES Medication Allergy: No (10/18/2016 12:14:Tanya Horan RN) Medication Allergies: No Known Allergies (10/21/2016) (10/21/2016 04:32:QS system process) Latex Allergy: No Latex Allergies (10/18/2016 12:14:Tanya Horan RN) Food Allergies: denies (10/18/2016 12:14:Allie Ulrich RN) Environmental Allergies: denies (10/18/2016 12:14:Allie Ulrich RN) COMMUNICATION Primary Language: American (10/18/2016 12:14:Tanya Horan RN) Medical Tx Preferred Language: American (10/18/2016 12:14:NEAL Dalal) Communication Barrier(s): None (10/18/2016 12:14:NEAL Dalal) DEMOGRAPHICS Address: [address] [place] [address] [place] [address] (09/27/2016 14:09:QS system process) Zipcode: [address] (09/27/2016 14:09:QS system process) Home (09/27/2016 14:09:QS system process) Work (10/18/2016 12:12:QS system process) N: [phone] (09/27/2016 14:09:QS system process) Next of Kin Name: JOSHUA CASAREZ (09/27/2016 14:09:QS system process) Next of Kin (09/27/2016 14:09:QS system process) Next of Kin Relationship: SPO (09/27/2016 14:09:QS system process) Date of : 1990 (09/27/2016 14:09:QS system process) Marital Status: (09/27/2016 14:09:QS system process) Sex: Female (09/27/2016 14:09:QS system process) Race: Other (09/27/2016 14:09:QS system process) Ethnicity: Non- or (09/27/2016 14:09:QS system process) Sabianist: None (09/27/2016 14:09:QS system process) DRUG AND ALCOHOL USE Alcohol: No (10/18/2016 12:14:Allie Ring, RN) Cigarettes: Never Smoker. 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: [facility] (10/18/2016 12:14:Adrienne Cottrell RN) Feeding Preference: Breast (10/18/2016 12:14:Allie Ulrich RN) Benefit of Breast Feed Discussed: Yes (10/18/2016 12:14:Allie Ulrich RN) Circumcision: N/A (10/18/2016 12:14:Allie Ulrich RN) Classes Attended: No (10/18/2016 12:14:Allie Ulrich RN) Tubal Ligation: No (10/18/2016 12:14:Allie Ulrich RN) Tubal Authorization Signed: N/A (10/18/2016 12:14:Allie Ulrich RN) Consent: N/A (10/18/2016 12:14:Allie Ulrich RN) Pain Management Plans: Natural; Medications; Epidural (10/18/2016 12:14:Allie Ulrich RN) Plans for Labor and Delivery: None (10/18/2016 12:14:Allie Ulrich RN) Support Person: Joshua Casarez (10/18/2016 12:14:Allie Ulrich RN) Support Person Relationship: (10/18/2016 12:14:Allie Ulrich RN) Cultural/Spritual Practice: No (10/18/2016 12:14:Allie Ulrich RN) Spir/Cult Dietary Needs: No (10/18/2016 12:14:Allie Ulrich RN) LIVING SITUATION/DISCHARGE PLAN Living Arrangements: House (10/18/2016 12:14:Allie Ulrich RN) Adequate Access to:: Electric; Heat; Refrigeration; Plumbing/Running water; Phone; Transportation (10/18/2016 12:14:Allie Ulrich RN) WIC Program: [facility] (10/18/2016 12:14:Allie Ulrich RN) Discharge Jockey Agent Person: Joshua (10/18/2016 12:14:Allie Ulrich RN) Person to Help after Discharge: Joshua (10/18/2016 12:14:Allie Ulrich RN) Currently Using Commun Resources: Alyssa (10/18/2016 12:14:Allie Ulrich RN) Outside Agency/Auto Transmission Mechanic: [facility]lyssa (10/18/2016 12:14:Allie Ulrich RN) Car Seat for Discharge: Yes (10/18/2016 12:14:Allie Ulrich RN) Pt Contact w/infant Post : N/A (10/18/2016 12:14:Allie Ulrich RN) LABS Blood Type: O Positive (10/18/2016 12:14:Tanya Horan RN) Antibody Screen: neg (10/18/2016 12:14:Tanya Horan RN) Hemoglobin: 8.7 L (10/22/2016 07:08:QS system process) Hematocrit: 26.6 L (10/22/2016 07:08:QS system process) MCV: 90 (10/22/2016 07:08:QS system process) Group Beta Strep: neg (10/18/2016 12:14:Tanya Horan RN) Gonorrhea: Negative (10/18/2016 12:14:Tanya Horan RN) Chlamydia: Negative (10/18/2016 12:14:Stephanie Saucedo RN) RPR/VDRL: Nonreactive (10/18/2016 12:14:Tanya Horan RN) Hepatitis B: Negative (10/18/2016 12:14:Tanya Horan RN) Rubella: Non-Immune (10/18/2016 12:14:Stephanie Saucedo RN) OB/PREVIOUS HISTORY Previous Procedures: None (10/18/2016 12:14:Allie Ulrich RN) Current Procedures: Ultrasound (10/18/2016 12:14:Allie Ulrich RN) History of Previous : No (10/18/2016 12:14:Allie Ulrich RN) History of Gestational Diabetes: Yes (10/18/2016 12:14:Allie Ulrich RN) History of PIH: No (10/18/2016 12:14:Allie Ulrich RN) History of Incompetent Cervix: No (10/18/2016 12:14:Allie Ulrich RN) History of Placenta Previa/Abrup: No (10/18/2016 12:14:Allie Ulrich RN) History of Macrosomia: No (10/18/2016 12:14:Allie Ulrich RN) History of IUGR: No (10/18/2016 12:14:Allie Ulrich RN) History of Hemorrhage: No (10/18/2016 12:14:Allie Ulrich RN) History of Loss/Stillborn: No (10/18/2016 12:14:Allie Ulrich RN) History of : No (10/18/2016 12:14:Allie Ulrich RN) History of D (Rh) Sensitization: No (10/18/2016 12:14:Allie Ulrich RN) History Recurrent Loss/Stillborn: No (10/18/2016 12:14:Allie Ulrich RN) History Depression/PP Depression: No (10/18/2016 12:14:Allie Ulrich RN) History of Uterine Anomaly/MARIA ELENA: No (10/18/2016 12:14:Allie Ulrich RN) History of Infertility: No (10/18/2016 12:14:Allie Ulrich RN) History of ART Treatment: No (10/18/2016 12:14:Allie Ulrich RN) History of MARIA ELENA: No (10/18/2016 12:14:Allie Ulrich RN) Comments Obstetrical History: G1: SAB in 2012 G2: current (diet-controlled GDM) (10/18/2016 12:14:Allie Ulrich RN) MEDICAL HISTORY Med Hx Diabetes: Yes (10/18/2016 12:14:Allie Ulrich RN) Diabetes Type: Gestational Diabetes (10/18/2016 12:14:Allie Ulrich RN) Med Hx Hypertension: No (10/18/2016 12:14:Allie Ulrich RN) Med Hx Heart Disease: No (10/18/2016 12:14:Allie Ulrich RN) Med Hx Autoimmune Disorder: No (10/18/2016 12:14:Allie Ulrich RN) Med Hx Kidney Disease/UTI: No (10/18/2016 12:14:Allie Ulrich RN) Med Hx Neurologic/Epilepsy: No (10/18/2016 12:14:Allie Ulrich RN) Med Hx Psychiatric Disorders: No (10/18/2016 12:14:Allie Ulrich RN) Med Hx Hepatitis/Liver Disease: No (10/18/2016 12:14:Allie Ulrich RN) Med Hx Varicosities/Phlebitis: No (10/18/2016 12:14:Allie Ulrich RN) Med Hx Thyroid Dysfunction: No (10/18/2016 12:14:Allie Ulrich RN) Med Hx Trauma/Violence: No (10/18/2016 12:14:Allie Ulrich RN) Med Hx Blood Transfusion: No (10/18/2016 12:14:Allie Ulrich RN) Med Hx Pulmonary (Asthma,TB): No (10/18/2016 12:14:Allie Ulrich RN) Med Hx Breast: No (10/18/2016 12:14:Allie Ulrich RN) Med Hx LAB SUPPORT SERVICE TECH Surgery: No (10/18/2016 12:14:Allie Ulrich RN) Med Hx Hospitalization/Surgery: No (10/18/2016 12:14:Allie Ulrich RN) Med Hx Anesthetic Complications: No (10/18/2016 12:14:Allie Ulrich RN) Med Hx Abnormal Pap Smear: Yes (10/18/2016 12:14:Allie Ulrich RN) Other Medical Diseases: No (10/18/2016 12:14:Allie Ulrich RN) Med Hx Significant Family Hx: No (10/18/2016 12:14:Allie Ulrich RN) Details of Med/Surg Hx: Abnormal pap (pt does not remember when) (10/18/2016 12:14:Allie Ulrich RN) INFECTIOUS HISTORY Inf Hx Gonorrhea: No (10/18/2016 12:14:Allie Ulrich RN) Inf Hx Chlamydia: Yes (10/18/2016 12:14:Tanya Horan RN) Inf Hx Syphilis: No (10/18/2016 12:14:Allie Ulrich RN) Inf Hx HIV/AIDS: No (10/18/2016 12:14:Allie Ulrich RN) Inf Hx Human Papilloma Virus: No (10/18/2016 12:14:Allie Ulrich RN) Inf Hx Pt/Partner Genital Herpes: No (10/18/2016 12:14:Allie Ulrich RN) Inf Hx Tuberculosis/Exposure: No (10/18/2016 12:14:Allie Ulrich RN) Inf Hx Hepatitis B,C: No (10/18/2016 12:14:Allie Ulrich RN) Inf Hx Rash or Viral Illness: No (10/18/2016 12:14:Allie Ulrich RN) Details of Infectious Hx: Positive Chlamydia August 2016, negative DG (10/18/2016 12:14:Tanya Horan RN) GENETIC HISTORY Gen Hx Age >=35 at RICKEY: No (10/18/2016 12:14:Allie Ulrich RN) Gen Hx Thalassemia: No (10/18/2016 12:14:Allie Ulrich RN) Gen Hx Congenital Heart Defect: No (10/18/2016 12:14:Allie Ulrich RN) Gen Hx Neural Tube Defect: No (10/18/2016 12:14:Allie Ulrich RN) Gen Hx Down's Syndrome: No (10/18/2016 12:14:Allie Ulrich RN) Gen Hx Epi-Sachs: No (10/18/2016 12:14:Allie Ulrich RN) Gen Hx Nghia: No (10/18/2016 12:14:Allie Ulrich RN) Gen Hx Familial Dysautonomia: No (10/18/2016 12:14:Allie Ulrich RN) Gen Hx Sickle Cell Disease/Trait: No (10/18/2016 12:14:Allie Ulrich RN) Gen Hx Hemophilia/Blood Disorder: No (10/18/2016 12:14:Allie Ulrich RN) Gen Hx Muscular Dystrophy: No (10/18/2016 12:14:Allie Ulrich RN) Gen Hx Cystic Fibrosis: No (10/18/2016 12:14:Allie Ulrich RN) Gen Hx Huntingtons Chorea: No (10/18/2016 12:14:Allie Ulrich RN) Gen Hx Mental Retardation/Autism: No (10/18/2016 12:14:Allie Ulrich RN) Gen Hx Tested for Fragile X: No (10/18/2016 12:14:Allie Ulrich RN) Gen Hx Other Inher/Chromosomal: No (10/18/2016 12:14:Allie Ulrich RN) Gen Hx Maternal Metabolic DO: No (10/18/2016 12:14:Allie Ulrich RN) Gen Hx Pt Father or FOB Defect: No (10/18/2016 12:14:Allie Ulrich RN) Gen Hx Other Genetic History: No (10/18/2016 12:14:Allie Ulrich RN) Gen Hx Drugs/Meds since LMP: Yes (10/18/2016 12:14:Allie Ulrich RN) Gen Hx Medications: PNV (10/18/2016 12:14:Allie Ulrich RN) Details of Genetic History: denies (10/18/2016 12:14:Allie Ulrich RN)
--- NOTE | 2016-10-23 06:01 | L&D Current Admission ---
Current Admit Datetime Report Generated by CPN: 10/23/2016 06:00 ADMISSION INFORMATION Current Admit Date/Time: 10/21/2016 18:19 (10/21/2016 18:19:Adrienne Cottrell RN) Reason for Admission: Onset of Labor (10/21/2016 18:19:Adrienne Cottrell RN) Chief Complaint: Contractions (10/21/2016 18:21:Adrienne Cottrell RN) EGA per Dates: 40.0 (10/21/2016 18:19:QS system process) Method of Arrival: Wheelchair (10/21/2016 18:19:Adrienne Cottrell RN) Admitted From: Home (10/21/2016 18:19:Adrienne Cottrell RN) Reason for Induction: Not Applicable (10/21/2016 18:19:Adrienne Cottrell RN) Records Available: Yes (10/21/2016 18:19:Adrienne Cottrell RN) General Admission Information: Reviewed; Updated; Confirmed (10/21/2016 18:19:Adrienne Cottrell RN) General Admission Reviewed By: Gale Cottrell RN (10/21/2016 18:19:Adrienne Cottrell RN) BELONGINGS/ADVANCED DIRECTIVES Other Belongings: see valuable consent (10/21/2016 18:19:Adrienne Cottrell RN) Disposition of Belongings: Kept with Patient (10/21/2016 18:19:Adrienne Cottrell RN) Advance Direct for Healthcare: No, and Wants No Information (10/21/2016 18:19:Adrienne Cottrell RN) Durable Power of Marketing Data Specialist: No (10/21/2016 18:19:Adrienne Cottrell RN) Living Will: No (10/21/2016 18:19:Adrienne Cottrell RN) Organ Donor: No (10/21/2016 18:19:Adrienne Cottrell RN) Pt Rights Information Given: Yes (10/21/2016 18:19:Adrienne Cottrell RN) Pt Understands Pt Rights: Yes (10/21/2016 18:19:Adrienne Cottrell RN) LEARNING ASSESSMENT Knowledge Level: Understands Diagnosis (10/21/2016 18:19:Adrienne Cottrell RN) Barriers to Learning: None (10/21/2016 18:19:Adrienne Cottrell RN) Learning Readiness: Motivated (10/21/2016 18:Shilo:Adrienne Cottrell RN) Learns Best By: 1 to 1 Instruction; Demonstration (10/21/2016 18:Shilo:Adrienne Cottrell RN) Learning Needs: Labor and Delivery Process; Pain Management; Symptoms to Report (10/21/2016 18:19:Adrienne Cottrell RN) DOMESTIC VIOLANCE SCREENING Dom Viol Threatened/Hurt: No (10/21/2016 18:19:Adrienne Cottrell RN) Hx of Abuse/Neglect past 2yrs: No (10/21/2016 18:19:Adrienne Cottrell RN) Feel Unsafe Going Home: No (10/21/2016 18:19:Adrienne Cottrell RN) Addt'l Observ Indicating Abuse: No (10/21/2016 18:19:Adrienne Cottrell RN) Reason Unable to Complete Screen: N/A, Screen Completed (10/21/2016 18:19:Adrienne Cottrell RN) Considered Personal Harm/Suicide: No (10/21/2016 18:19:Adrienne Cottrell RN) NUTRITIONAL/FUNCTIONAL SCREENING Problem with Appetite >5 Days: No (10/21/2016 18:19:Adrienne Cottrell RN) Chew/Swallow Difficulties: No (10/21/2016 18:19:Adrienne Cottrell RN) Inappropriate Wt Gain/Loss: No (10/21/2016 18:19:Adrienne Cottrell RN) Presence Skin Breakdown/Ulcer: No (10/21/2016 18:19:Adrienne Cottrell RN) Special Diet: No (10/21/2016 18:19:Adrienne Cottrell RN) Pt Requests Barge Engineer Visit: No (10/21/2016 18:19:Adrienne Cottrell RN) Hx of Any of the Following?: N/A (10/21/2016 18:19:Adrienne Cottrell RN) New Diagnosis of: N/A (10/21/2016 18:19:Adrienne Cottrell RN) Requires Assist w/Ambulation: No (10/21/2016 18:19:Adrienne Cottrell RN) Uses Assist Device to Ambulate: No (10/21/2016 18:19:Adrienne Cottrell RN) Pt Requires Help w/ADL's: No (10/21/2016 18:19:Adrienne Cottrell RN)
[2016-10-23 08:38] VITALS: BP 119/65
[2016-10-23] MEDS: PRENATAL VITAMIN W-O CA NO5/FE FUMARATE/FA CAPSULE PO SCH (10:21)
[2016-10-23] MEDS: SENNOSIDES/DOCUSATE 8.6-50 MG 1 EACH TABLET PO SCH (10:21)
[2016-10-23] MEDS: DOCUSATE SODIUM 100 MG CAPSULE PO SCH (10:21)
[2016-10-23] MEDS: FERROUS SULFATE 325 MG TABLET PO SCH (10:21)
--- NOTE | 2016-10-23 14:32 | PDOC DISCHARGE SUMMARY ---
Final Diagnosis Discharge Date: 10/23/16 - Final Diagnosis (1) Delivery normal Is this a current diagnosis for this admission?: Yes Discharge Data - Discharge Medication Home Medications: Vit #76/Iron,Carb/FA [Pnv 29-1 Tablet] 1 each PO DAILY 10/18/16 Ibuprofen [Motrin 800 mg Tablet] 800 mg PO Q8 #90 tablet 10/23/16 Reason(s) for Admission: Onset of Labor Procedures: NST, Ultrasound Intrapartum Procedure(s): Spontaneous Vaginal Delivery - Diagnosis Test Laboratory: Temp Pulse Resp BP Pulse Ox 98.1 F 92 16 119/65 100 10/23/16 08:36 10/23/16 08:36 10/23/16 08:36 10/23/16 08:36 10/23/16 08:36 10/21/16 10/22/16 18:40 07:08 RBC 3.94 2.94 L Hgb 11.6 L 8.7 L D Hct 35.3 L 26.6 L - Discharge information/Instructions Discharge Activity: Activity As Tolerated, No Lifting Over 10 Pounds, No Lifting /Push/Pulling, Pelvic Rest, Slowly Increase Activity, No tub bath Discharge Diet: Regular Disposition: HOME, SELF-CARE Follow up with: [facility] in: 4, Weeks - needs fasting Blood sugar at that visit.
== END 2016-10-23 14:55 | disposition home or self-care (01) | DRG 775 ==
LOC: LC 17:53 → LR 18:33 → 2S 23:26
PROVIDERS: ADMIT Obstetrics & Gynecology; ATTEND Obstetrics & Gynecology
PROC: 10E0XZZ Delivery of Products of Conception, External Approach (ICD-10-PCS; principal; 2016-10-21)
PROC: 10907ZC Drainage of Amniotic Fluid, Therapeutic from Products of Conception, Via Natural or Artificial Opening (ICD-10-PCS; 2016-10-21)
DX: O24.420 Gestational diabetes mellitus in childbirth, diet controlled (principal); Z3A.40 40 weeks gestation of pregnancy; Z37.0 Single live birth
CPT/HCPCS: 36415; 85025; 85027; 86592; 86850; 86900; 86901; 90707; 94760; J2590; J3490